=== PATIENT | female | born 1955 | race Caucasian/White ===

== ENCOUNTER 2016-12-26 08:38 | Emergency (ER) | payer OTHER ==
[2016-12-26 08:47] VITALS: BP 124/71; PULSE 78; TEMP 98.2; BMI 25.6
[2016-12-26] MEDS ORDERED: KETOROLAC TROMETHAMINE 60 MG/2 ML VIAL IM ONE (09:38)
[2016-12-26] MEDS ORDERED: KETOROLAC TROMETHAMINE 60 MG/2 ML VIAL ONE (09:41)
[2016-12-26] MEDS ORDERED: KETOROLAC TROMETHAMINE 30 MG/1 ML VIAL IM ONE (09:43)
--- NOTE | 2016-12-26 09:55 | PDOC ---
History of Present Illness - General Chief Complaint: Pain Stated Complaint: LT SHOULDER PAIN Time Seen by Provider: 12/26/16 08:58 - History of Present Illness Initial Comments: 12/26/16 09:51 CHIEF COMPLAINT: shoulder pain HISTORY OF PRESENT ILLNESS: 61 yo F with hx of HTN, HLD, s/p pacemaker implant presents to fast track with new onset pain to Left shoulder. 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 She denies any chest pain, shortness of breath, diaphoresis. She states the pain is worse whenever she tries to move her arm and improves without movement. No recent travel or sick contacts. PAST MEDICAL HISTORY: Denies past medical history FAMILY HISTORY: Denies SOCIAL HISTORY: Occupation: housekeeping associate. Denies tobacco, alcohol, illicit drug use. SURGICAL HISTORY: pacemaker ALLERGIES: No known drug allergies REVIEW OF SYSTEMS General/Constitutional: Denies fever or chills. Denies weakness, weight change. HEENT: Denies change in vision. Denies ear pain or discharge. Denies sore throat. Cardiovascular: Denies chest pain or shortness of breath. Respiratory: Denies cough, wheezing, or hemoptysis. Musculoskeletal: Left shoulder pain since last night. Skin and breasts: Denies rash or easy bruising. Neurologic: Denies headache, vertigo, loss of consciousness, or loss of sensation. PHYSICAL EXAM General Appearance: Well-appearing, appropriately dressed. No apparent distress. HEENT: EOMI, PERRLA, normal voice. No conjunctival pallor. No photophobia, scleral icterus. Respiratory/Chest: Lungs CTAB. Cardiovascular: RRR. S1, S2. Musculoskeletal/Extremities: Reproducible tenderness to left trapezius and glenohumeral joint. Positive empty can/Neer/Hawkin's tests. No tenderness to extremities, pedal edema, swelling, erythema or deformity. Integumentary: Appropriate color, dry, warm. No cyanosis, erythema, jaundice or rash Neurologic: manufacturing specialist II-XII intact. Fully oriented, alert. Appropriate mood/affect. Motor strength 5/5. No appreciable EOM palsy, facial droop or sensory deficit. Past History - Past Medical History Allergies/Adverse Reactions: Allergies Allergy/AdvReac Type Severity Reaction Status Date / Time Penicillins Allergy Intermediate Verified 12/26/16 08:47 Home Medications: Ambulatory Orders Carvedilol 3.125 mg PO BID 03/21/14 Lisinopril [Prinivil -] 5 mg PO DAILY 03/21/14 Simvastatin [Zocor -] 20 mg PO HS 03/21/14 Warfarin Sodium [Coumadin] 2.5 mg PO HS 03/21/14 Biotin 5 mg PO DAILY 10/28/14 Cholecalciferol (Vitamin D3) [Vitamin D3] 1,000 unit PO DAILY 10/28/14 Cyanocobalamin [Vitamin B12 -] 50 mcg PO DAILY 10/28/14 Tramadol HCl 50 mg PO TID 09/16/15 Ibuprofen 600 mg PO TID PRN #12 tablet 12/26/16 Spironolactone 50 mg PO DAILY 12/26/16 Cardiac Disorders: Yes (pacemaker, RHEUMATIC FEVER, MITRAL STENOSIS, AFIB/ FLUTTER) HTN: Yes Hypercholesterolemia: Yes - Surgical History Cardiac Surgery: Yes (BALLOON VALVOPLASTY, AV WAYNE ABLATION) Orthopedic Surgery: No - Psycho/Social/Smoking Cessation Hx Anxiety: No Suicidal Ideation: No Smoking Status: No Smoking History: Never smoked Have you smoked in the past 12 months: No Number of Cigarettes Smoked Daily: 0 Cigars Per Day: 0 Hx Alcohol Use: No Drug/Substance Use Hx: No Substance Use Type: None *Physical Exam - Vital Signs Last Vital Signs Temp Pulse Resp BP Pulse Ox 98.2 F 78 20 124/71 100 12/26/16 08:44 12/26/16 08:44 12/26/16 08:44 12/26/16 08:44 12/26/16 08:44 ED Treatment Course - Medications Given in the ED: ED Medications Discontinued Medications Generic Name Dose Route Start Last Admin Trade Name Freq PRN Reason Stop Dose Admin Ketorolac Tromethamine 60 mg 12/26/16 09:38 12/26/16 09:49 Toradol Injection - IM 12/26/16 09:39 Not Given ONCE ONE Ketorolac Tromethamine 30 mg 12/26/16 09:43 12/26/16 09:49 Toradol Injection - IM 12/26/16 09:44 30 mg ONCE ONE Administration Medical Decision Making - Medical Decision Making 12/26/16 10:35 61 yo F with hx of HTN, HLD, s/p pacemaker implant presents to fast track with new onset pain to Left shoulder. Clinical presentation consistent with rotator cuff injury. -30 mg Toradol -600 mg ibuprofen TID PRN pain; script sent to pharm. Advised patient to take with caution and only with severe pain. Advised patient that she must f/u with orthopedics within the next 1-2 days for further evaluation and management of rotator cuff injury pain. Patient verbalized understanding and agrees to plan. *DC/Admit/Observation/Transfer Diagnosis at time of Disposition: Rotator cuff impingement syndrome of left shoulder - Discharge Dispostion Disposition: HOME Condition at time of disposition: Stable Admit: No - Prescriptions Prescriptions: Ibuprofen 600 mg PO TID PRN #12 tablet PRN Reason: Pain - Referrals Referrals: Holli Gonzalez MD [Primary Care Provider] - Kale Connors MD [Staff Physician] - - Patient Instructions Printed Discharge Instructions: DI for Rotator Cuff Injury Additional Instructions: Please take medication as prescribed. Follow up with orthopedics as discussed. If you experience any chest pain, shortness of breath, abdominal pain, palpitations, sweating, or any new or worsening symptoms, please return to the ER.
== END 2016-12-26 10:37 | disposition home or self-care (01) ==
LOC: JERFT 08:38
PROC: 3E0233Z Introduction of Anti-inflammatory into Muscle, Percutaneous Approach (ICD-10-PCS; principal; 2016-12-26)
DX: M75.42 Impingement syndrome of left shoulder (principal); I10 Essential (primary) hypertension; E78.00 Pure hypercholesterolemia, unspecified; I48.91 Unspecified atrial fibrillation; Z79.01 Long term (current) use of anticoagulants; Z95.0 Presence of cardiac pacemaker
CPT/HCPCS: 99281-25

== ENCOUNTER 2016-12-28 06:12 | Emergency (ER) | payer OTHER ==
[2016-12-28] MEDS ORDERED: KETOROLAC TROMETHAMINE 30 MG/1 ML VIAL IM ONE (06:17)
[2016-12-28] MEDS ORDERED: predniSONE 20 MG TABLET (UD) PO ONE (06:17)
[2016-12-28 06:20] VITALS: BP 119/42; PULSE 64; TEMP 97.5; BMI 23.6
--- NOTE | 2016-12-28 06:23 | PDOC ---
History of Present Illness - General Chief Complaint: Pain, Acute Stated Complaint: LT SHOULDER PAIN History Source: Patient, Old Records Exam Limitations: No Limitations - History of Present Illness Initial Comments: 12/28/16 06:19 61 Y F VALVULOPLASTY, ON COUMADIN, SEEN IN ED 4 DAYS AGO FOR SHOULDER PAIN RX IBUPROFEN AND REFERRED TO ORTHO. PRESENTS TO ED C/O WORSENING PAIN. RADIATING TO BACK AND NECK. WORSE AT MOVEMENT. DID NOT FOLLOW UP WITH ORTHO. NO FEVER, NO PARESTHESIA. NO SOB, CP, N/V. NO HEAD ACHE. NO VISUAL OR SPEECH CHANGES. IN ED, UNCOMFORTABLE W/ PAIN Past History - Past Medical History Allergies/Adverse Reactions: Allergies Allergy/AdvReac Type Severity Reaction Status Date / Time Penicillins Allergy Intermediate Verified 12/26/16 08:47 Home Medications: Ambulatory Orders Carvedilol 3.125 mg PO BID 03/21/14 Simvastatin [Zocor -] 20 mg PO HS 03/21/14 Warfarin Sodium [Coumadin] 2.5 mg PO HS 03/21/14 Biotin 5 mg PO DAILY 10/28/14 Cholecalciferol (Vitamin D3) [Vitamin D3] 1,000 unit PO DAILY 10/28/14 Cyanocobalamin [Vitamin B12 -] 50 mcg PO DAILY 10/28/14 Tramadol HCl 50 mg PO TID 09/16/15 Ibuprofen 600 mg PO TID PRN #12 tablet 12/26/16 Spironolactone 50 mg PO DAILY 12/26/16 Cyclobenzaprine HCl [Flexeril 10 mg] 10 mg PO TID #20 tablet 12/28/16 Prednisone [Deltasone -] 40 mg PO DAILY #08 tablet 12/28/16 Cardiac Disorders: Yes (pacemaker, RHEUMATIC FEVER, MITRAL STENOSIS, AFIB/ FLUTTER) HTN: Yes Hypercholesterolemia: Yes - Surgical History Cardiac Surgery: Yes (BALLOON VALVOPLASTY, AV WAYNE ABLATION) Orthopedic Surgery: No - Psycho/Social/Smoking Cessation Hx Anxiety: No Suicidal Ideation: No Smoking Status: No Smoking History: Never smoked Have you smoked in the past 12 months: No Number of Cigarettes Smoked Daily: 0 Cigars Per Day: 0 Hx Alcohol Use: No Drug/Substance Use Hx: No Substance Use Type: None *Physical Exam - Physical Exam General Appearance: Yes: Nourished, Appropriately Dressed, Mild Distress HEENT: positive: EOMI, RADHAMES, Normal ENT Inspection, Other (NO PTOSIS) Neck: positive: Tender (MID TRAPEZIOUS TRIGGER POINT ). negative: Carotid bruit Respiratory/Chest: positive: Lungs Clear, Normal Breath Sounds. negative: Chest Tender Cardiovascular: positive: Regular Rhythm, Regular Rate Integumentary: positive: Normal Color Neurologic: positive: shuttle bus driver II-XII NML intact, Fully Oriented, Alert, Normal Mood/ Affect, Normal Response, Motor Strength 5/5 Progress Note - Progress Note Progress Note: SYMPTOMS C/W CERVICAL RADICULOPATHY WILL ADD MUSCL RELAXANT AND PREDNISONE *DC/Admit/Observation/Transfer Diagnosis at time of Disposition: Cervical radiculopathy - Discharge Dispostion Disposition: HOME Condition at time of disposition: Stable - Prescriptions Prescriptions: Prednisone [Deltasone -] 40 mg PO DAILY #08 tablet Cyclobenzaprine HCl [Flexeril 10 mg] 10 mg PO TID #20 tablet - Patient Instructions Additional Instructions: TAKE MEDICATIONS PRESCRIBED SEE ORTHOPEDIC SURGEON (DR EMERY) INSTRUCTED
[2016-12-28] MEDS ORDERED: CYCLOBENZAPRINE HCL 10 MG TABLET (FP) PO ONE (06:24)
[2016-12-28] MEDS ORDERED: CYCLOBENZAPRINE HCL 10 MG TABLET (FP) ONE (06:24)
== END 2016-12-28 06:55 | disposition home or self-care (01) ==
LOC: FER 06:12
PROC: 3E0233Z Introduction of Anti-inflammatory into Muscle, Percutaneous Approach (ICD-10-PCS; principal; 2016-12-28)
DX: M54.12 Radiculopathy, cervical region (principal); I10 Essential (primary) hypertension; E78.00 Pure hypercholesterolemia, unspecified; Z95.0 Presence of cardiac pacemaker; I05.0 Rheumatic mitral stenosis; Z79.01 Long term (current) use of anticoagulants
CPT/HCPCS: 99282-25

== ENCOUNTER 2017-01-29 12:38 | Inpatient (IN) | payer OTHER ==
--- NOTE | 2017-01-29 13:30 | PDOC ---
History of Present Illness - General History Source: Patient Exam Limitations: No Limitations - History of Present Illness Initial Comments: 01/29/17 14:22 The patient is a 61 year old female, with a significant past medical history of Mitral stenosis, Atrial flutter(pacemaker in place), HTN, HLD, Rheumatic fever who presents to the emergency department with neck pain for the past month. The patient reports the neck pain radiates down her L arm with tingling sensation into her fingers. Patient denies any alleviating or exacerbating factors. Patient reports associated cold sweats and a unexplained 20 pound weight loss within the past month. Currently in the ED, the patient is in severe pain and presents for further evaluation sent in by her PCP. She denies chest pain, headache or dizziness. She denies fever, nausea, vomit, diarrhea or constipation. She denies dysuria, frequency, urgency or hematuria. Allergies: Penicillins Past surgical history: ballon valvuloplasty, AV Wayne ablation Social history: None PCP: Dr. Linton <Debbie Calderon - Last Filed: 01/29/17 16:58> - General History Source: Patient Exam Limitations: No Limitations <Mercy Palafox - Last Filed: 01/30/17 09:09> - General Chief Complaint: Pain Stated Complaint: NECK/LT SHOULDER PAIN, NUMBNESS IN ARMS Time Seen by Provider: 01/29/17 12:56 Past History <Debbie Calderon - Last Filed: 01/29/17 16:58> - Past Medical History Cardiac Disorders: Yes (pacemaker, RHEUMATIC FEVER, MITRAL STENOSIS, AFIB/ FLUTTER) HTN: Yes Hypercholesterolemia: Yes - Surgical History Cardiac Surgery: Yes (BALLOON VALVOPLASTY, AV WAYNE ABLATION) Orthopedic Surgery: No - Psycho/Social/Smoking Cessation Hx Anxiety: No Suicidal Ideation: No Smoking Status: No Smoking History: Never smoked Have you smoked in the past 12 months: No Number of Cigarettes Smoked Daily: 0 Cigars Per Day: 0 Information on smoking cessation initiated: No Hx Alcohol Use: No Drug/Substance Use Hx: No Substance Use Type: None <Mercy Palafox - Last Filed: 01/30/17 09:09> - Past Medical History Allergies/Adverse Reactions: Allergies Allergy/AdvReac Type Severity Reaction Status Date / Time Penicillins Allergy Intermediate Verified 01/29/17 12:40 Home Medications: Ambulatory Orders Carvedilol 3.125 mg PO BID 03/21/14 Simvastatin [Zocor -] 20 mg PO HS 03/21/14 Warfarin Sodium [Coumadin] 2.5 mg PO HS 03/21/14 Biotin 5 mg PO DAILY 10/28/14 Cholecalciferol (Vitamin D3) [Vitamin D3] 1,000 unit PO DAILY 10/28/14 Cyanocobalamin [Vitamin B12 -] 50 mcg PO DAILY 10/28/14 Tramadol HCl 50 mg PO TID 09/16/15 Ibuprofen 600 mg PO TID PRN #12 tablet 12/26/16 Spironolactone 50 mg PO DAILY 12/26/16 Cyclobenzaprine HCl [Flexeril 10 mg] 10 mg PO TID #20 tablet 12/28/16 Prednisone [Deltasone -] 40 mg PO DAILY #08 tablet 12/28/16 Cyclobenzaprine HCl [Flexeril 10 mg] 5 mg PO BID PRN #20 tablet 01/29/17 Gabapentin 300 mg PO BID PRN #30 capsule 01/29/17 Metaxalone [Skelaxin] 800 mg PO BID 01/29/17 Review of Systems - Review of Systems Able to Perform ROS?: Yes Comments:: 01/29/17 14:22 GENERAL/CONSTITUTIONAL: No: fever, chills, weakness, loss of appetite. HEAD, EYES, EARS, NOSE AND THROAT: No: change in vision, ear pain, discharge, sore throat, throat swelling. CARDIOVASCULAR: No: chest pain, lightheadedness, palpitations, syncope RESPIRATORY: No: cough, shortness of breath, wheezing, hemoptysis, stridor. GASTROINTESTINAL: No: nausea, vomiting, abdominal cramping, diarrhea, rectal bleeding, constipation. GENITOURINARY: No: dysuria, hematuria, frequency, urgency, flank pain. MUSCULOSKELETAL: + neck pain. No: back pain, , joint pain, muscle swelling or pain SKIN: No: lesions, pallor, rash or easy bruising. NEUROLOGIC: No: headache, vertigo, paresthesias, weakness ENDOCRINE: No: unexplained weight gain or loss HEMATOLOGIC/LYMPHATIC: No: anemia, easy bleeding, swelling nodes <Debbie Calderon - Last Filed: 01/29/17 16:58> *Physical Exam - Vital Signs Last Vital Signs Temp Pulse Resp BP Pulse Ox 97.6 F 66 18 133/62 99 01/29/17 12:41 01/29/17 12:41 01/29/17 12:41 01/29/17 12:41 01/29/17 12:41 - Physical Exam Comments: 01/29/17 14:22 GENERAL: The patient is in no acute distress. HEAD: Normal with no signs of trauma. EYES: PERRLA, EOMI, sclera anicteric, conjunctiva clear. ENT: Ears normal, nares patent, oropharynx clear without exudates. Moist mucous membranes. NECK: Normal range of motion, supple without lymphadenopathy, JVD, or masses. + Cervical midline tenderness. +Cervical and thoracic tenderness to palpation. LUNGS: Breath sounds equal, clear to auscultation bilaterally. No wheezes, and no crackles. HEART:Regular rate and rhythm, normal S1 and S2 without murmur, rub or gallop. ABDOMEN: Soft, nontender, normoactive bowel sounds. No guarding, no rebound. EXTREMITIES: Normal range of motion, no edema. No clubbing or cyanosis. No erythema, or tenderness. NEUROLOGICAL: Cranial nerves II through XII grossly intact. Normal speech. No focal neurological deficits. MUSCULOSKELETAL: Back nontender to palpation, no CVA tenderness SKIN: Warm, Dry, normal turgor, no rashes or lesions noted. <Debbie Calderon - Last Filed: 01/29/17 16:58> - Vital Signs Last Vital Signs Temp Pulse Resp BP Pulse Ox 97.6 F 66 18 133/62 99 01/29/17 12:41 01/29/17 12:41 01/29/17 12:41 01/29/17 12:41 01/29/17 12:41 <Mercy Palafox - Last Filed: 01/30/17 09:09> Heart Score/ECG Review #1 ECG reviewed & interpreted by me at: 15:55 01/29/17 15:55 Aflutter rate of ?[address] Left axis deviation No ST elevations or depressions <Mercy Palafox - Last Filed: 01/30/17 09:09> ED Treatment Course - LABORATORY CBC & Chemistry Diagram: 01/29/17 13:15 01/29/17 13:15 - ADDITIONAL ORDERS Additional order review: Laboratory Results 01/29/17 13:15 Sodium 134 L Potassium 4.3 Chloride 98 Carbon Dioxide 22 Anion Gap 14 BUN 37 H Creatinine 1.0 Creat Clearance w eGFR 56.37 Random Glucose 105 Calcium 10.2 H Total Bilirubin 2.0 H AST 44 H ALT 75 Alkaline Phosphatase 54 Total Protein 7.7 Albumin 4.4 01/29/17 13:15 RBC 5.51 H MCV 86.9 MCHC 34.8 RDW 14.5 MPV 8.0 Neutrophils % 68.3 Lymphocytes % 23.0 Monocytes % 7.5 Eosinophils % 0.6 Basophils % 0.6 <Debbie Calderon - Last Filed: 01/29/17 16:58> - LABORATORY CBC & Chemistry Diagram: 01/30/17 06:30 01/30/17 06:30 - RADIOLOGY Radiology Studies Ordered: Category Date Time Status CERVICAL SPINE CT W/O CONTR [CT] Stat CT Scan 01/29/17 13:03 Ordered <Mercy Palafox - Last Filed: 01/30/17 09:09> Medical Decision Making - Medical Decision Making 01/29/17 13:29 A portion of this note was documented by scribe services under my direction. I have reviewed the details of the note, within reason, and agree with the documentation with the following case summary and management plan written by me. Nursing documentation reviewed and incorporated into medical decision making Pt sent to the ER from her PMD's office due to severe neck pain Pt reports 1 months of severe neck pain She was previously seen by Dr Connors She can not have an MRI due to presence of a pacemaker No fevers Pt does report chills She has also noted 20 pound weight loss in the past month No direct trauma to the neck Pt states that she has also been 01/29/17 14:07 Laboratory Tests 01/29/17 13:15 WBC 9.2 Hgb 16.6 H Hct 47.9 H Plt Count 223 Neutrophils % 68.3 Lymphocytes % 23.0 INR elevated Pt seen by Neuro in the ER per request of Dr Abarca Pt was admitted <Mercy Palafox - Last Filed: 01/30/17 09:09> *DC/Admit/Observation/Transfer - Attestations Scribe Attestion: 01/29/17 14:22 Documentation prepared by Debbie Calderon, acting as medical information specialist for Mercy Palafox MD/DO. <Debbie Calderon - Last Filed: 01/29/17 16:58> - Discharge Dispostion Admit: Yes <Mercy Palafox - Last Filed: 01/30/17 09:09> Diagnosis at time of Disposition: Cervical radiculopathy, Supratherapeutic INR - Discharge Dispostion Condition at time of disposition: Stable - Prescriptions
[2017-01-29 13:35] LABS: BASOPHIL 0.6 % (0-2.0); EOSINOPHIL 0.6 % (0-4.5); MCH 30.2 pg (25.7-33.7); MCHC 34.8 g/dl (32.0-36.0); MEAN CELL VOLUME 86.9 fl (80-96); NEUTROPHILS 68.3 % (42.8-82.8); PLATELET COUNT 223 K/MM3 (134-434); RDW 14.5 % (11.6-15.6); WHITE BLOOD COUNT 9.2 K/mm3 (4.0-10.0)
[2017-01-29 14:19] LABS: ALBUMIN 4.4 g/dl (3.4-5.0); CALCIUM 10.2 mg/dL (8.5-10.1); COCKROFT - GAULT 59.2195; TOT PROT 7.7 g/dl (6.4-8.2)
[2017-01-29 14:45] LABS: PROTHROMBIN TIME (PATIENT) 107.9 SEC (9.98-11.88)
[2017-01-29 14:47] LABS: INR 9.37 (0.82-1.09)
--- NOTE | 2017-01-29 15:06 | CONSULT ---
Consult - text type - Consultation Consultation Note: Neurology The patient is a 61 year old female, with a significant past medical history of Mitral stenosis (pacemaker in place), Atrial flutter, HTN, HLD, Rheumatic fever who presents to the emergency department with neck pain for the past month. The patient reports her neck pain radiates down her L arm with tingling sensation into her fingers. Patient denies any alleviating factors. She only tried Tylenol. She has CT C spine with facet hypertrophy. Ideally would be helpful to get EMG (cannot have MRI 2/2 PPM) however patient with INR of 9 and therefore may not be safe to do so at this time. Past History - Past Medical History Cardiac Disorders: Yes (pacemaker, RHEUMATIC FEVER, MITRAL STENOSIS, AFIB/ FLUTTER) HTN: Yes Hypercholesterolemia: Yes - Surgical History Cardiac Surgery: Yes (BALLOON VALVOPLASTY, AV WAYNE ABLATION) Orthopedic Surgery: No - Psycho/Social/Smoking Cessation Hx Anxiety: No Suicidal Ideation: No Smoking Status: No Smoking History: Never smoked Have you smoked in the past 12 months: No Number of Cigarettes Smoked Daily: 0 Cigars Per Day: 0 Information on smoking cessation initiated: No Hx Alcohol Use: No Drug/Substance Use Hx: No Substance Use Type: None - Past Medical History Allergies/Adverse Reactions: Allergies Allergy/AdvReac Type Severity Reaction Status Date / Time Penicillins Allergy Intermediate Verified 01/29/17 12:40 Home Medications: Ambulatory Orders Carvedilol 3.125 mg PO BID 03/21/14 Simvastatin [Zocor -] 20 mg PO HS 03/21/14 Warfarin Sodium [Coumadin] 2.5 mg PO HS 03/21/14 Biotin 5 mg PO DAILY 10/28/14 Cholecalciferol (Vitamin D3) [Vitamin D3] 1,000 unit PO DAILY 10/28/14 Cyanocobalamin [Vitamin B12 -] 50 mcg PO DAILY 10/28/14 Tramadol HCl 50 mg PO TID 09/16/15 Ibuprofen 600 mg PO TID PRN #12 tablet 12/26/16 Spironolactone 50 mg PO DAILY 12/26/16 Cyclobenzaprine HCl [Flexeril 10 mg] 10 mg PO TID #20 tablet 12/28/16 Prednisone [Deltasone -] 40 mg PO DAILY #08 tablet 12/28/16 Metaxalone [Skelaxin] 800 mg PO BID 01/29/17 Review of Systems GENERAL/CONSTITUTIONAL: No: fever, chills, weakness, loss of appetite. HEAD, EYES, EARS, NOSE AND THROAT: No: change in vision, ear pain, discharge, sore throat, throat swelling. CARDIOVASCULAR: No: chest pain, lightheadedness, palpitations, syncope RESPIRATORY: No: cough, shortness of breath, wheezing, hemoptysis, stridor. GASTROINTESTINAL: No: nausea, vomiting, abdominal cramping, diarrhea, rectal bleeding, constipation. GENITOURINARY: No: dysuria, hematuria, frequency, urgency, flank pain. MUSCULOSKELETAL: + neck pain. No: back pain, , joint pain, muscle swelling or pain SKIN: No: lesions, pallor, rash or easy bruising. NEUROLOGIC: No: headache, vertigo, paresthesias, weakness ENDOCRINE: No: unexplained weight gain or loss HEMATOLOGIC/LYMPHATIC: No: anemia, easy bleeding, swelling nodes *Physical Exam Last Vital Signs Temp Pulse Resp BP Pulse Ox 97.6 F 66 18 133/62 99 01/29/17 12:41 01/29/17 12:41 01/29/17 12:41 01/29/17 12:41 01/29/17 12:41 GENERAL: The patient is in no acute distress. HEAD: Normal with no signs of trauma. EYES: PERRLA, EOMI, sclera anicteric, conjunctiva clear. ENT: Ears normal, nares patent, oropharynx clear without exudates. Moist mucous membranes. NECK: Normal range of motion, supple without lymphadenopathy, JVD, or masses. + Cervical midline tenderness. +Cervical and thoracic tenderness to palpation. LUNGS: Breath sounds equal, clear to auscultation bilaterally. No wheezes, and no crackles. HEART:Regular rate and rhythm, normal S1 and S2 without murmur, rub or gallop. ABDOMEN: Soft, nontender, normoactive bowel sounds. No guarding, no rebound. EXTREMITIES: Normal range of motion, no edema. No clubbing or cyanosis. No erythema, or tenderness. NEUROLOGICAL: Cranial nerves II through XII grossly intact. Normal speech. No focal neurological deficits. Individualized Education Plan Aide strenght intact, decreased range of motion of cervical flex/ex MUSCULOSKELETAL: Back nontender to palpation, no CVA tenderness SKIN: Warm, Dry, normal turgor, no rashes or lesions noted. Laboratory Results 01/29/17 13:15 Sodium 134 L Potassium 4.3 Chloride 98 Carbon Dioxide 22 Anion Gap 14 BUN 37 H Creatinine 1.0 Creat Clearance w eGFR 56.37 Random Glucose 105 Calcium 10.2 H Total Bilirubin 2.0 H AST 44 H ALT 75 Alkaline Phosphatase 54 Total Protein 7.7 Albumin 4.4 01/29/17 13:15 RBC 5.51 H MCV 86.9 MCHC 34.8 RDW 14.5 MPV 8.0 Neutrophils % 68.3 Lymphocytes % 23.0 Monocytes % 7.5 Eosinophils % 0.6 Basophils % 0.6 Medical Decision Making 61 year old female, with a significant past medical history of Mitral stenosis ( pacemaker in place), Atrial flutter, HTN, HLD, Rheumatic fever who presents to the emergency department with neck pain for the past month. The patient reports her neck pain radiates down her L arm with tingling sensation into her fingers. Patient denies any alleviating factors. She only tried Tylenol. She has CT C spine with facet hypertrophy. Ideally would be helpful to get EMG (cannot have MRI 2/2 PPM) however patient with INR of 9 and therefore may not be safe to do so at this time. Will start Erika 300mg twice daily and Cyclobenzaprine. Medical mgmt for INR as patient on Coumadin with INR of 9. Will have to defer EMG to outpatient.
[2017-01-29] MEDS ORDERED: ONDANSETRON 4 MG/2 ML VIAL IVPB PRN (15:29)
[2017-01-29] MEDS ORDERED: PHYTONADIONE 10 MG/1 ML AMP SQ ONE (15:32)
--- NOTE | 2017-01-29 15:38 | HP ---
Admitting History and Physical - Primary Care Physician PCP: Holli Gonzalez - Admission Chief Complaint: I'm having arm pain History of Present Illness: Ms Brown is a 61 year old female who was sent in for pain in her arm for 1.5 months. She says she did not have any trauma to the area, it happened spontaneously. She says the pain begins in her neck and it radiates down her left arm. She has numbness in four of her fingers on the ventral side. She says certain neck movements make it worse. She says nothing relieves it. When this pain started, she also had a loss of appetite. She says she lost 20lbs unintentionally secondary to this. She also has been having night sweats. She denies fevers, chills, lightheadedness, dizziness, chest pain, shortness of breath, nausea, vomiting, diarrhea, constipation, pain or difficulty urinating, or leg swelling. History Source: Patient Limitations to Obtaining History: No Limitations - Past Medical History Cardiovascular: Yes: AFIB, HTN, Hyperlipdemia - Past Surgical History Past Surgical History: Yes: Permanent Pacemaker - Smoking History Smoking history: Never smoked Have you smoked in the past 12 months: No Aproximately how many cigarettes per day: 0 - Alcohol/Substance Use Hx Alcohol Use: No History of Substance Use: reports: None - Social History Usual Living Arrangement: Yes: Alone ADL: Independent History of Recent Travel: No Home Medications - Allergies Allergies/Adverse Reactions: Allergies Allergy/AdvReac Type Severity Reaction Status Date / Time Penicillins Allergy Intermediate Verified 01/29/17 12:40 - Home Medications Home Medications: Ambulatory Orders Carvedilol 3.125 mg PO BID 03/21/14 Simvastatin [Zocor -] 20 mg PO HS 03/21/14 Warfarin Sodium [Coumadin] 2.5 mg PO HS 03/21/14 Biotin 5 mg PO DAILY 10/28/14 Cholecalciferol (Vitamin D3) [Vitamin D3] 1,000 unit PO DAILY 10/28/14 Cyanocobalamin [Vitamin B12 -] 50 mcg PO DAILY 10/28/14 Tramadol HCl 50 mg PO TID 09/16/15 Ibuprofen 600 mg PO TID PRN #12 tablet 12/26/16 Spironolactone 50 mg PO DAILY 12/26/16 Cyclobenzaprine HCl [Flexeril 10 mg] 10 mg PO TID #20 tablet 12/28/16 Prednisone [Deltasone -] 40 mg PO DAILY #08 tablet 12/28/16 Cyclobenzaprine HCl [Flexeril 10 mg] 5 mg PO BID PRN #20 tablet 01/29/17 Gabapentin 300 mg PO BID PRN #30 capsule 01/29/17 Metaxalone [Skelaxin] 800 mg PO BID 01/29/17 Family Disease History - Family Disease History Family Disease History: [place]: Grandparent, Father, Mother Review of Systems Findings/Remarks: Full review of systems obtained, as per HPI and otherwise negative. Physical Examination Vital Signs: Vital Signs Temperature 97.6 F 01/29/17 12:41 Pulse Rate 66 01/29/17 12:41 Respiratory Rate 18 01/29/17 12:41 Blood Pressure 133/62 01/29/17 12:41 O2 Sat by Pulse Oximetry (%) 99 01/29/17 12:41 Constitutional: Yes: Well Nourished, No Distress, Calm Eyes: Yes: Conjunctiva Clear, EOM Intact, PERRL HENT: Yes: Atraumatic, Normocephalic Cardiovascular: Yes: Regular Rate and Rhythm. No: Gallop, Murmur, Rub Respiratory: Yes: Regular, CTA Bilaterally. No: Rales, Rhonchi, Wheezes Gastrointestinal: Yes: Normal Bowel Sounds, Soft. No: Distention, Tenderness Extremities: Yes: WNL Edema: No Labs: CBC, BMP 01/29/17 13:15 01/29/17 13:15 Imaging - Results Cat Scan: Report Reviewed, Image Reviewed Problem List - Problems (1) Supratherapeutic INR Assessment/Plan: -patient found to have INR of 9 -suspect this is secondary to decreased food intake -admit to the hospital, unsafe for discharge home -give vitamin k -will check head CT to rule out bleed -hold coumadin Code(s): R79.1 - ABNORMAL COAGULATION PROFILE (2) Cervical radiculopathy Assessment/Plan: -appreciate neurology assistance -PT consult -gabapentin and flexeril -outpatient EMG Code(s): M54.12 - RADICULOPATHY, CERVICAL REGION (3) Hypercalcemia Assessment/Plan: -patient with calcium on the high end of normal -considering multiple non-specific complaints, concerning for possible malignancy -hydrate with IVF -recheck in am -will obtain CT C/A/P since has weight loss, night sweats, hypercalcemia, and significant family history Code(s): E83.52 - HYPERCALCEMIA (4) Hyperbilirubinemia Assessment/Plan: -patient taking tylenol for pain -stat tylenol level ordered, awaiting results -CT abdomen ordered -recheck in am -hold statin Code(s): E80.6 - OTHER DISORDERS OF BILIRUBIN METABOLISM (5) Atrial fibrillation Assessment/Plan: -with permanent pacemaker -continue outpatient therapy -hold coumadin as above Code(s): I48.91 - UNSPECIFIED ATRIAL FIBRILLATION Qualifiers: Atrial fibrillation type: chronic Qualified Code(s): I48.2 - Chronic atrial fibrillation (6) HTN (hypertension) Assessment/Plan: -continue coreg and aldactone Code(s): I10 - ESSENTIAL (PRIMARY) HYPERTENSION (7) HLD (hyperlipidemia) Assessment/Plan: -holding statin Code(s): E78.5 - HYPERLIPIDEMIA, UNSPECIFIED (8) Night sweats Assessment/Plan: -non-specific -however with hypercalcemia, hyperbilirubinemia, and anorexia with weight loss will obtain both CT scans and HIV test Code(s): R61 - GENERALIZED HYPERHIDROSIS (9) Weight loss, unintentional Assessment/Plan: -as above -note that protein and albumin are normal so this may be subjective Code(s): R63.4 - ABNORMAL WEIGHT LOSS
--- NOTE | 2017-01-29 16:46 | PDOC ---
ED Treatment Course - LABORATORY CBC & Chemistry Diagram: 01/29/17 13:15 01/29/17 13:15 - ADDITIONAL ORDERS Additional order review: Laboratory Results 01/29/17 01/29/17 01/29/17 13:15 13:15 13:03 INR 9.37 H* D Sodium 134 L Potassium 4.3 Chloride 98 Carbon Dioxide 22 Anion Gap 14 BUN 37 H Creatinine 1.0 Creat Clearance w eGFR 56.37 Random Glucose 105 Calcium 10.2 H Total Bilirubin 2.0 H AST 44 H ALT 75 Alkaline Phosphatase 54 Total Protein 7.7 Albumin 4.4 Blood Type B POSITIVE Antibody Screen Negative 01/29/17 13:15 RBC 5.51 H MCV 86.9 MCHC 34.8 RDW 14.5 MPV 8.0 Neutrophils % 68.3 Lymphocytes % 23.0 Monocytes % 7.5 Eosinophils % 0.6 Basophils % 0.6 - RADIOLOGY Radiology Studies Ordered: Category Date Time Status CERVICAL SPINE CT W/O CONTR [CT] Stat CT Scan 01/29/17 13:[address] WITHOUT CONTRAST [CT] Stat CT Scan 01/29/17 15:07 Ordered *DC/Admit/Observation/Transfer Diagnosis at time of Disposition: Cervical radiculopathy, Supratherapeutic INR - Discharge Dispostion Condition at time of disposition: Stable Admit: Yes - Prescriptions
[2017-01-29] MEDS ORDERED: morphine CARPU-JECT 4 MG/1 ML DISP.SYRIN IVPUSH ONE (16:51)
[2017-01-29] MEDS ORDERED: PANTOPRAZOLE 40 MG TABLET (FP) ONE (17:09)
[2017-01-29] MEDS ORDERED: morphine CARPU-JECT 4 MG/1 ML DISP.SYRIN ONE (17:09)
[2017-01-29] MEDS: PANTOPRAZOLE 40 MG TABLET (FP) PO SCH (17:21)
[2017-01-29] MEDS: SODIUM CHLORIDE 1,000 ML IV SCH (19:16)
[2017-01-29 20:23] VITALS: BMI 23.2
[2017-01-29] MEDS ORDERED: diphenhydrAMINE HCL 25 MG CAPSULE (FP) PO PRN (21:09)
[2017-01-29] MEDS ORDERED: oxyCODONE HCL 5 MG TABLET PO PRN (21:15)
[2017-01-29] MEDS ORDERED: ATORVASTATIN CA 10 MG TABLET (FP) PO SCH (22:00)
[2017-01-29] MEDS ORDERED: PATIENT'S OWN MEDICATION (NON-FORMULARY) (Simvastatin 20 MG) PO SCH (22:00)
--- NOTE | 2017-01-29 22:52 | EKG ---
Test Reason : Blood Pressure : / mmHG Vent. Rate : 117 BPM Atrial Rate : 340 BPM P-R Int : 000 ms QRS Dur : 016 ms QT Int : 458 ms P-R-T Axes : 107 000 -08 degrees QTc Int : 638 ms ATRIAL FLUTTER WITH VARIABLE A-V BLOCK WITH FREQUENT ventricular-paced complexes AND WITH PREMATURE VENTRICULAR OR ABERRANTLY CONDUCTED COMPLEXES INDETERMINATE AXIS PROLONGED QT ABNORMAL ECG WHEN COMPARED WITH ECG OF 30-DEC-2006 07:24, ELECTRONIC VENTRICULAR PACEMAKER Confirmed by BRENDEN ALEJANDRE MD ([id number]) on 01/29/2017 10:51:55 PM Referred By: Confirmed By:BRENDEN ALEJANDRE MD
[2017-01-29] MEDS: CYCLOBENZAPRINE HCL 10 MG TABLET (FP) PO SCH (23:40)
[2017-01-29] MEDS: GABAPENTIN 300 MG CAPSULE (FP) PO SCH (23:40)
[2017-01-29] MEDS: ACETYLCYSTEINE 20% 200MG/ML 4 ML VIAL *FOR ORAL / INH USE ONLY PO SCH (23:40)
[2017-01-29] MEDS: CARVEDILOL 3.125 MG TABLET (FP) PO SCH (23:40)
[2017-01-30 07:47] LABS: BASOPHIL 0.6 % (0-2.0); EOSINOPHIL 1.4 % (0-4.5); MCH 30.2 pg (25.7-33.7); MCHC 34.4 g/dl (32.0-36.0); MEAN CELL VOLUME 87.8 fl (80-96); MEAN PLT VOLUME 8.2 fl (7.5-11.1); PLATELET COUNT 186 K/MM3 (134-434); RDW 14.7 % (11.6-15.6); WHITE BLOOD COUNT 6.7 K/mm3 (4.0-10.0)
[2017-01-30 08:25] LABS: ALBUMIN 3.6 g/dl (3.4-5.0); ANION GAP 7 (8-16); CALCIUM 8.6 mg/dL (8.5-10.1); CO2 27 mmol/L (21-32); CREATININE 0.9 mg/dL (0.55-1.02); GLUCOSE,RANDOM 90 mg/dL (74-106); MAGNESIUM 1.8 mg/dL (1.8-2.4); SGOT/AST 27 U/L (15-37); SGPT/ALT 49 U/L (12-78)
[2017-01-30 08:27] LABS: ALK PHOS 43 U/L (45-117); BILIRUBIN,TOTAL 1.7 mg/dL (0.2-1.0); TOT PROT 6.5 g/dl (6.4-8.2)
[2017-01-30 08:37] LABS: INR 5.44 (0.82-1.09)
[2017-01-30] MEDS ORDERED: PATIENT'S OWN MEDICATION (NON-FORMULARY) (Spironolactone [Spironolactone] 50 MG) PO SCH (10:00)
[2017-01-30] MEDS: SPIRONOLACTONE 25 MG TABLET (FP) PO SCH (10:40)
[2017-01-30] MEDS: CYCLOBENZAPRINE HCL 10 MG TABLET (FP) PO SCH ×2 (10:40→21:34)
[2017-01-30] MEDS: CARVEDILOL 3.125 MG TABLET (FP) PO SCH ×2 (10:40→21:34)
[2017-01-30] MEDS: CYANOCOBALAMIN (VITAMIN B-12) 100 MCG TABLET PO SCH (10:41)
[2017-01-30] MEDS: GABAPENTIN 300 MG CAPSULE (FP) PO SCH ×2 (10:41→21:35)
[2017-01-30] MEDS: PANTOPRAZOLE 40 MG TABLET (FP) PO SCH (10:41)
[2017-01-30] MEDS: CHOLECALCIFEROL (VITAMIN D3) 1,000 UNIT TABLET (FP) PO SCH (10:41)
[2017-01-30 12:00] LABS: HIV 1 & 2 AB NEGATIVE; HIV 1 AGp24 NEGATIVE
--- NOTE | 2017-01-30 12:47 | PN ---
Progress Note (short form) - Note Progress Note: Neurology The patient is a 61 year old female, with a significant past medical history of Mitral stenosis (pacemaker in place), Atrial flutter, HTN, HLD, Rheumatic fever who presents to the emergency department with neck pain for the past month. The patient reports her neck pain radiates down her L arm with tingling sensation into her fingers. Patient denies any alleviating factors. She only tried Tylenol. She has CT C spine with facet hypertrophy. Ideally would be helpful to get EMG (cannot have MRI 2/2 PPM) however patient with INR elevated and therefore may not be safe to do so at this time. Plan is for outpatient EMG. Cervical discomfort improved with gabapentin and flexiril combination. - Past Medical History Allergies/Adverse Reactions: Allergies Allergy/AdvReac Type Severity Reaction Status Date / Time Penicillins Allergy Intermediate Verified 01/29/17 12:40 Active Medications Acetylcysteine (Mucomyst 20 Oral / Inh Use Only*) 1,200 mg PO BID COUNTS INCLUDE 234 BEDS AT THE [facility] Stop: 01/31/17 10:01 Last Admin: 01/29/17 23:40 Dose: 1,200 mg Carvedilol (Coreg -) 3.125 mg PO BID COUNTS INCLUDE 234 BEDS AT THE [facility] Last Admin: 01/30/17 10:40 Dose: 3.125 mg Cholecalciferol (Vitamin D3 -) 1,000 unit PO DAILY COUNTS INCLUDE 234 BEDS AT THE [facility] Last Admin: 01/30/17 10:41 Dose: 1,000 unit Cyanocobalamin (Vitamin B12 -) 50 mcg PO DAILY COUNTS INCLUDE 234 BEDS AT THE [facility] Last Admin: 01/30/17 10:41 Dose: 50 mcg Cyclobenzaprine HCl (Flexeril -) 5 mg PO BID COUNTS INCLUDE 234 BEDS AT THE [facility] Last Admin: 01/30/17 10:40 Dose: 5 mg Diphenhydramine HCl (Benadryl -) 25 mg PO Q4H PRN PRN Reason: ITCHING /RASH Last Admin: 01/29/17 23:40 Dose: 25 mg Gabapentin (Neurontin -) 300 mg PO BID COUNTS INCLUDE 234 BEDS AT THE [facility] Last Admin: 01/30/17 10:41 Dose: 300 mg Sodium Chloride (Normal Saline -) 1,000 mls @ 50 mls/hr IV ASDIR COUNTS INCLUDE 234 BEDS AT THE [facility] Stop: 01/30/17 15:31 Last Admin: 01/29/17 19:16 Dose: 50 mls/hr Ondansetron HCl (Zofran Injection) 4 mg IVPB Q6H PRN PRN Reason: NAUSEA Oxycodone HCl (Roxicodone -) 5 mg PO Q6H PRN Pantoprazole Sodium (Protonix -) 40 mg PO DAILY COUNTS INCLUDE 234 BEDS AT THE [facility] Last Admin: 01/30/17 10:41 Dose: 40 mg Spironolactone (Aldactone -) 50 mg PO DAILY COUNTS INCLUDE 234 BEDS AT THE [facility] Last Admin: 01/30/17 10:40 Dose: 50 mg *Physical Exam Vital Signs Period Temp Pulse Resp BP Sys/Tejeda Pulse Ox Last 24 Hr 97.4 F-98.6 F 69-100 18-20 97-143/58-88 98-100 GENERAL: The patient is in no acute distress. HEAD: Normal with no signs of trauma. EYES: PERRLA, EOMI, sclera anicteric, conjunctiva clear. ENT: Ears normal, nares patent, oropharynx clear without exudates. Moist mucous membranes. NECK: Normal range of motion, supple without lymphadenopathy, JVD, or masses. + Cervical midline tenderness. +Cervical and thoracic tenderness to palpation. LUNGS: Breath sounds equal, clear to auscultation bilaterally. No wheezes, and no crackles. HEART:Regular rate and rhythm, normal S1 and S2 without murmur, rub or gallop. ABDOMEN: Soft, nontender, normoactive bowel sounds. No guarding, no rebound. EXTREMITIES: Normal range of motion, no edema. No clubbing or cyanosis. No erythema, or tenderness. NEUROLOGICAL: Cranial nerves II through XII grossly intact. Normal speech. No focal neurological deficits. Executive Vice President strenght intact, decreased range of motion of cervical flex/ex MUSCULOSKELETAL: Back nontender to palpation, no CVA tenderness SKIN: Warm, Dry, normal turgor, no rashes or lesions noted. Laboratory Results 01/29/17 13:15 Sodium 134 L Potassium 4.3 Chloride 98 Carbon Dioxide 22 Anion Gap 14 BUN 37 H Creatinine 1.0 Creat Clearance w eGFR 56.37 Random Glucose 105 Calcium 10.2 H Total Bilirubin 2.0 H AST 44 H ALT 75 Alkaline Phosphatase 54 Total Protein 7.7 Albumin 4.4 01/29/17 13:15 RBC 5.51 H MCV 86.9 MCHC 34.8 RDW 14.5 MPV 8.0 Neutrophils % 68.3 Lymphocytes % 23.0 Monocytes % 7.5 Eosinophils % 0.6 Basophils % 0.6 Medical Decision Making 61 year old female, with a significant past medical history of Mitral stenosis ( pacemaker in place), Atrial flutter, HTN, HLD, Rheumatic fever who presents to the emergency department with neck pain for the past month. The patient reports her neck pain radiates down her L arm with tingling sensation into her fingers. Patient denies any alleviating factors. She only tried Tylenol. She has CT C spine with facet hypertrophy. Ideally would be helpful to get EMG (cannot have MRI 2/2 PPM) however patient with INR elevated and therefore may not be safe to do so at this time. Doing well onb Erika 300mg twice daily and Cyclobenzaprine 5mg twice daily. Medical mgmt for INR as patient on Coumadin. Will have to defer EMG to outpatient. Neurologically improved.
[2017-01-30] MEDS: SODIUM CHLORIDE 1,000 ML IV SCH ×2 (13:12→15:43)
--- NOTE | 2017-01-30 13:13 | PN ---
Progress Note, Physician Chief Complaint: Patient says pain is better controlled. No cp, sob, n/v. - Current Medication List Current Medications: Active Medications Acetylcysteine (Mucomyst 20 Oral / Inh Use Only*) 1,200 mg PO BID [facility] Stop: 01/31/17 10:01 Last Admin: 01/29/17 23:40 Dose: 1,200 mg Carvedilol (Coreg -) 3.125 mg PO BID [facility] Last Admin: 01/30/17 10:40 Dose: 3.125 mg Cholecalciferol (Vitamin D3 -) 1,000 unit PO DAILY [facility] Last Admin: 01/30/17 10:41 Dose: 1,000 unit Cyanocobalamin (Vitamin B12 -) 50 mcg PO DAILY [facility] Last Admin: 01/30/17 10:41 Dose: 50 mcg Cyclobenzaprine HCl (Flexeril -) 5 mg PO BID [facility] Last Admin: 01/30/17 10:40 Dose: 5 mg Diphenhydramine HCl (Benadryl -) 25 mg PO Q4H PRN PRN Reason: ITCHING /RASH Last Admin: 01/29/17 23:40 Dose: 25 mg Gabapentin (Neurontin -) 300 mg PO BID [facility] Last Admin: 01/30/17 10:41 Dose: 300 mg Sodium Chloride (Normal Saline -) 1,000 mls @ 50 mls/hr IV ASDIR [facility] Stop: 01/30/17 15:31 Last Admin: 01/30/17 13:12 Dose: 50 mls/hr Ondansetron HCl (Zofran Injection) 4 mg IVPB Q6H PRN PRN Reason: NAUSEA Oxycodone HCl (Roxicodone -) 5 mg PO Q6H PRN Last Admin: 01/30/17 13:11 Dose: 5 mg Pantoprazole Sodium (Protonix -) 40 mg PO DAILY [facility] Last Admin: 01/30/17 10:41 Dose: 40 mg Spironolactone (Aldactone -) 50 mg PO DAILY [facility] Last Admin: 01/30/17 10:40 Dose: 50 mg - Objective Vital Signs: Vital Signs Temperature 98.4 F 01/30/17 10:00 Pulse Rate 82 01/30/17 10:00 Respiratory Rate 18 01/30/17 10:00 Blood Pressure 109/73 01/30/17 10:00 O2 Sat by Pulse Oximetry (%) 98 01/30/17 09:00 Constitutional: Yes: Well Nourished, No Distress, Calm Cardiovascular: Yes: Regular Rate and Rhythm. No: Gallop, Murmur, Rub Respiratory: Yes: Regular, CTA Bilaterally. No: Rales, Rhonchi, Wheezes Gastrointestinal: Yes: Normal Bowel Sounds, Soft. No: Distention, Tenderness Extremities: Yes: WNL Edema: No Labs: CBC, BMP 01/30/17 06:30 01/30/17 06:30 INR, PTT INR 5.44 (0.82-1.09) H* D 01/30/17 06:30 Problem List - Problems (1) Supratherapeutic INR Code(s): R79.1 - ABNORMAL COAGULATION PROFILE (2) Cervical radiculopathy Code(s): M54.12 - RADICULOPATHY, CERVICAL REGION (3) Hypercalcemia Code(s): E83.52 - HYPERCALCEMIA (4) Hyperbilirubinemia Code(s): E80.6 - OTHER DISORDERS OF BILIRUBIN METABOLISM (5) Atrial fibrillation Code(s): I48.91 - UNSPECIFIED ATRIAL FIBRILLATION Qualifiers: Atrial fibrillation type: chronic Qualified Code(s): I48.2 - Chronic atrial fibrillation (6) HTN (hypertension) Code(s): I10 - ESSENTIAL (PRIMARY) HYPERTENSION (7) HLD (hyperlipidemia) Code(s): E78.5 - HYPERLIPIDEMIA, UNSPECIFIED (8) Night sweats Code(s): R61 - GENERALIZED HYPERHIDROSIS (9) Weight loss, unintentional Code(s): R63.4 - ABNORMAL WEIGHT LOSS Assessment/Plan (1) Supratherapeutic INR Assessment/Plan: -improved today but still elevated -continue holding coumadin -recheck in am Code(s): R79.1 - ABNORMAL COAGULATION PROFILE (2) Cervical radiculopathy Assessment/Plan: -improved -case d/w neurology -continue current regimen Code(s): M54.12 - RADICULOPATHY, CERVICAL REGION (3) Hypercalcemia Assessment/Plan: -resolved with hydration Code(s): E83.52 - HYPERCALCEMIA (4) Hyperbilirubinemia Assessment/Plan: -non-toxic tylenol level -improved with hydration Code(s): E80.6 - OTHER DISORDERS OF BILIRUBIN METABOLISM (5) Atrial fibrillation Assessment/Plan: -with permanent pacemaker -continue outpatient therapy -hold coumadin as above Code(s): I48.91 - UNSPECIFIED ATRIAL FIBRILLATION Qualifiers: Atrial fibrillation type: chronic Qualified Code(s): I48.2 - Chronic atrial fibrillation (6) HTN (hypertension) Assessment/Plan: -continue coreg and aldactone Code(s): I10 - ESSENTIAL (PRIMARY) HYPERTENSION (7) HLD (hyperlipidemia) Assessment/Plan: -holding statin Code(s): E78.5 - HYPERLIPIDEMIA, UNSPECIFIED (8) Night sweats Assessment/Plan: -non-specific -HIV negative -await CT scan results Code(s): R61 - GENERALIZED HYPERHIDROSIS (9) Weight loss, unintentional Assessment/Plan: -as above -note that protein and albumin are normal so this may be subjective Code(s): R63.4 - ABNORMAL WEIGHT LOSS
[2017-01-30] MEDS: ACETYLCYSTEINE 20% 200MG/ML 4 ML VIAL *FOR ORAL / INH USE ONLY PO SCH ×2 (13:20→21:34)
[2017-01-31 07:21] LABS: BASOPHIL 0.4 % (0-2.0); EOSINOPHIL 1.1 % (0-4.5); MCH 30.5 pg (25.7-33.7); MCHC 34.6 g/dl (32.0-36.0); MEAN CELL VOLUME 88.2 fl (80-96); MEAN PLT VOLUME 8.3 fl (7.5-11.1); NEUTROPHILS 62.8 % (42.8-82.8); PLATELET COUNT 177 K/MM3 (134-434); RDW 14.8 % (11.6-15.6); WHITE BLOOD COUNT 6.7 K/mm3 (4.0-10.0)
[2017-01-31 07:45] LABS: CALCIUM 8.9 mg/dL (8.5-10.1); COCKROFT - GAULT 67.15; CREATININE 0.8 mg/dL (0.55-1.02)
[2017-01-31 08:08] LABS: INR 1.87 (0.82-1.09); PROTHROMBIN TIME (PATIENT) 20.8 SEC (9.98-11.88)
[2017-01-31 09:59] VITALS: BP 127/79; PULSE 96; TEMP 97.3
[2017-01-31] MEDS: ACETYLCYSTEINE 20% 200MG/ML 4 ML VIAL *FOR ORAL / INH USE ONLY PO SCH (10:55)
[2017-01-31] MEDS: CHOLECALCIFEROL (VITAMIN D3) 1,000 UNIT TABLET (FP) PO SCH (10:55)
[2017-01-31] MEDS: CARVEDILOL 3.125 MG TABLET (FP) PO SCH (10:55)
[2017-01-31] MEDS: SPIRONOLACTONE 25 MG TABLET (FP) PO SCH (10:56)
[2017-01-31] MEDS: CYCLOBENZAPRINE HCL 10 MG TABLET (FP) PO SCH (10:56)
[2017-01-31] MEDS: CYANOCOBALAMIN (VITAMIN B-12) 100 MCG TABLET PO SCH (10:57)
[2017-01-31] MEDS: GABAPENTIN 300 MG CAPSULE (FP) PO SCH (10:57)
[2017-01-31] MEDS: PANTOPRAZOLE 40 MG TABLET (FP) PO SCH (10:57)
--- NOTE | 2017-01-31 11:04 | DS ---
Physical Examination Vital Signs: Vital Signs Temperature 97.3 F L 01/31/17 09:58 Pulse Rate 96 H 01/31/17 09:58 Respiratory Rate 22 01/31/17 09:58 Blood Pressure 127/79 01/31/17 09:58 O2 Sat by Pulse Oximetry (%) 98 01/30/17 21:00 Constitutional: Yes: Well Nourished, No Distress, Calm Cardiovascular: Yes: Regular Rate and Rhythm. No: Gallop, Murmur, Rub Respiratory: Yes: Regular, CTA Bilaterally. No: Rales, Rhonchi, Wheezes Gastrointestinal: Yes: Normal Bowel Sounds, Soft. No: Distention, Tenderness Extremities: Yes: WNL Edema: No Labs: CBC, BMP 01/31/17 06:10 01/31/17 06:10 Discharge Summary Reason For Visit: INTRACTABLE PAIN,CERVICAL RADICULOPATHY Current Active Problems Atrial fibrillation (Acute) Cervical radiculopathy (Acute) HLD (hyperlipidemia) (Acute) HTN (hypertension) (Acute) Hyperbilirubinemia (Acute) Hypercalcemia (Acute) Night sweats (Acute) Supratherapeutic INR (Acute) Weight loss, unintentional (Acute) Hospital Course: (1) Supratherapeutic INR Code(s): R79.1 - ABNORMAL COAGULATION PROFILE (2) Cervical radiculopathy Code(s): M54.12 - RADICULOPATHY, CERVICAL REGION (3) Hypercalcemia Code(s): E83.52 - HYPERCALCEMIA (4) Hyperbilirubinemia Code(s): E80.6 - OTHER DISORDERS OF BILIRUBIN METABOLISM (5) Atrial fibrillation Code(s): I48.91 - UNSPECIFIED ATRIAL FIBRILLATION Qualifiers: Atrial fibrillation type: chronic Qualified Code(s): I48.2 - Chronic atrial fibrillation (6) HTN (hypertension) Code(s): I10 - ESSENTIAL (PRIMARY) HYPERTENSION (7) HLD (hyperlipidemia) Code(s): E78.5 - HYPERLIPIDEMIA, UNSPECIFIED (8) Night sweats Code(s): R61 - GENERALIZED HYPERHIDROSIS (9) Weight loss, unintentional Code(s): R63.4 - ABNORMAL WEIGHT LOSS Ms Brown is a 61 year old female who was sent in for shoulder and arm pain and was admitted for an elevated INR. She was given vitamin K and the INR corrected. She is ok to restart her previous dose of coumadin and encouraged to eat a healthy diet (suspect her coumadin was elevated secondary to decreased intake). She had a cervical spine CT which was negative. She was seen by neurology and recommended further evaluation as an outpatient. She had multiple non-specific complaints with a pertinent family history of cancer so multiple scans were performed to evaluate for malignancy. CT scans are negative. She was seen by PT and did well. Currently she is safe for discharge home.l 33 minutes spent in preparation of this discharge Condition: Good - Instructions Diet, Activity, Other Instructions: resume previous diet and activity Referrals: Prince Clayton MD [Staff Physician] - Vlad Smith MD [Staff Physician] - Holli Gonzalez MD [Primary Care Provider] - Disposition: HOME - Home Medications Comprehensive Discharge Medication List: Ambulatory Orders Carvedilol 3.125 mg PO BID 03/21/14 Simvastatin [Zocor -] 20 mg PO HS 03/21/14 Warfarin Sodium [Coumadin] 2.5 mg PO HS 03/21/14 Biotin 5 mg PO DAILY 10/28/14 Cholecalciferol (Vitamin D3) [Vitamin D3] 1,000 unit PO DAILY 10/28/14 Cyanocobalamin [Vitamin B12 -] 50 mcg PO DAILY 10/28/14 Spironolactone 50 mg PO DAILY 12/26/16 Cyclobenzaprine HCl [Flexeril 10 mg] 5 mg PO BID PRN #20 tablet 01/31/17 Gabapentin [Neurontin -] 300 mg PO BID #60 cap 01/31/17
--- NOTE | 2017-01-31 13:03 | PN ---
Progress Note (short form) - Note Progress Note: Neurology The patient is a 61 year old female, with a significant past medical history of Mitral stenosis (pacemaker in place), Atrial flutter, HTN, HLD, Rheumatic fever who presents to the emergency department with neck pain for the past month. The patient reports her neck pain radiates down her L arm with tingling sensation into her fingers. Patient denies any alleviating factors. She only tried Tylenol. She has CT C spine with facet hypertrophy. Ideally would be helpful to get EMG (cannot have MRI 2/2 PPM) however patient with INR elevated and therefore plan is for outpatient EMG. Cervical discomfort improved with gabapentin and flexiril combination. Active Medications Carvedilol (Coreg -) 3.125 mg PO BID [facility] Last Admin: 01/31/17 10:55 Dose: 3.125 mg Cholecalciferol (Vitamin D3 -) 1,000 unit PO DAILY [facility] Last Admin: 01/31/17 10:55 Dose: 1,000 unit Cyanocobalamin (Vitamin B12 -) 50 mcg PO DAILY [facility] Last Admin: 01/31/17 10:57 Dose: 50 mcg Cyclobenzaprine HCl (Flexeril -) 5 mg PO BID [facility] Last Admin: 01/31/17 10:56 Dose: 5 mg Diphenhydramine HCl (Benadryl -) 25 mg PO Q4H PRN PRN Reason: ITCHING /RASH Last Admin: 01/29/17 23:40 Dose: 25 mg Gabapentin (Neurontin -) 300 mg PO BID [facility] Last Admin: 01/31/17 10:57 Dose: 300 mg Ondansetron HCl (Zofran Injection) 4 mg IVPB Q6H PRN PRN Reason: NAUSEA Oxycodone HCl (Roxicodone -) 5 mg PO Q6H PRN Last Admin: 01/30/17 13:11 Dose: 5 mg Pantoprazole Sodium (Protonix -) 40 mg PO DAILY [facility] Last Admin: 01/31/17 10:57 Dose: 40 mg Spironolactone (Aldactone -) 50 mg PO DAILY [facility] Last Admin: 01/31/17 10:56 Dose: 50 mg *Physical Exam Vital Signs Period Temp Pulse Resp BP Sys/Tejeda Pulse Ox Last 24 Hr 97.4 F-98.6 F 69-100 18-20 97-143/58-88 98-100 GENERAL: The patient is in no acute distress. HEAD: Normal with no signs of trauma. EYES: PERRLA, EOMI, sclera anicteric, conjunctiva clear. ENT: Ears normal, nares patent, oropharynx clear without exudates. Moist mucous membranes. NECK: Normal range of motion, supple without lymphadenopathy, JVD, or masses. + Cervical midline tenderness. +Cervical and thoracic tenderness to palpation. LUNGS: Breath sounds equal, clear to auscultation bilaterally. No wheezes, and no crackles. HEART:Regular rate and rhythm, normal S1 and S2 without murmur, rub or gallop. ABDOMEN: Soft, nontender, normoactive bowel sounds. No guarding, no rebound. EXTREMITIES: Normal range of motion, no edema. No clubbing or cyanosis. No erythema, or tenderness. NEUROLOGICAL: Cranial nerves II through XII grossly intact. Normal speech. No focal neurological deficits. Lpn Medical Assistant strenght intact, decreased range of motion of cervical flex/ex MUSCULOSKELETAL: Back nontender to palpation, no CVA tenderness SKIN: Warm, Dry, normal turgor, no rashes or lesions noted. Laboratory Results 01/29/17 13:15 Sodium 134 L Potassium 4.3 Chloride 98 Carbon Dioxide 22 Anion Gap 14 BUN 37 H Creatinine 1.0 Creat Clearance w eGFR 56.37 Random Glucose 105 Calcium 10.2 H Total Bilirubin 2.0 H AST 44 H ALT 75 Alkaline Phosphatase 54 Total Protein 7.7 Albumin 4.4 01/29/17 13:15 RBC 5.51 H MCV 86.9 MCHC 34.8 RDW 14.5 MPV 8.0 Neutrophils % 68.3 Lymphocytes % 23.0 Monocytes % 7.5 Eosinophils % 0.6 Basophils % 0.6 Medical Decision Making 61 year old female, with a significant past medical history of Mitral stenosis ( pacemaker in place), Atrial flutter, HTN, HLD, Rheumatic fever who presents to the emergency department with neck pain for the past month. The patient reports her neck pain radiates down her L arm with tingling sensation into her fingers. Patient denies any alleviating factors. She only tried Tylenol. She has CT C spine with facet hypertrophy. Ideally would be helpful to get EMG (cannot have MRI 2/2 PPM) however patient with INR elevated and therefore may not be safe to do so at this time. Doing well on Erika 300mg twice daily and Cyclobenzaprine 5mg twice daily. Medical mgmt for INR as patient on Coumadin. Will have to defer EMG to outpatient. Neurologically improved.
--- NOTE | 2017-01-31 21:40 | CONS ---
DATE OF CONSULTATION: 01/31/2017 REFERRING PHYSICIAN: Alfonso Abarca MD; Artur Davis MD HISTORY OF PRESENT ILLNESS: The patient is a 61-year-old woman who presents with more than a month of pain from her neck radiating into the left upper extremity and shoulder. Patient recalls no inciting incident. It started out pain in the neck, radiating to the left arm with numbness of the 1st 4 digits of the left upper extremity. Patient has had no appetite and has been losing weight. On admission, she underwent a CT of the cervical spine as well as a CT of the head. The CT of the head showed partially-imaged paranasal sinuses without any opacification, mild involutional changes, and no change from prior CAT scan. CT of the cervical spine was also done. She has a pacemaker. There was noted left paracentral and lateral disk bulge impinging the left C7 nerve root as it enters the foramen. There is also some marked right facet hypertrophy at C5-6 and moderate left facet hypertrophy at C4-5. Patient continues to have problems turning her neck to the left side but also elevating her shoulder. She was getting some chest discomfort and underwent a chest CT, which showed no metastatic disease, essentially normal, without any definite pathology. Patient was started on gabapentin, is taking 300 mg twice a day without any sedation or side effect. CBC was normal. WBC 6.7, hemoglobin 15.0, platelet count 177. Chemistry showed slight elevation in BUN, with creatinine normal at 0.8. Her AST had been slightly elevated on admission at 44 but normalized to 27. She also had elevation in calcium, 10.2, which normalized to 8.9. She had some prerenal azotemia on admission with a BUN 37, creatinine 1.0. Patient continues to complain of pain. No numbness, tingling or weakness in the right upper extremity. REVIEW OF PAST MEDICAL AND SURGICAL HISTORY: Atrial fibrillation. She is maintained in Coumadin and had an elevated INR of over 9 on admission, currently subtherapeutic at 1.87. She underwent HIV testing, which was negative. Other past medical history: Hypertension, hyperlipidemia, and permanent pacemaker. SOCIAL HISTORY: Premorbidly independent. Non-tobacco user. Independently ambulatory and lives alone. REVIEW OF SYSTEMS: No lightheadedness, dizziness. No blurry vision, double vision. No nausea, vomiting, difficulty swallowing, difficulty chewing. No chest pain or shortness of breath. No abdominal discomfort. No bowel or bladder incontinence. No fever or chills. No numbness or tingling in the lower extremities or right upper extremity. Again, numbness in the 1st 4 digits of the left upper extremity. No noted weakness. No gait instability. EXAMINATION: General: Patient is seen sitting in a wheelchair, in no acute distress. HEENT: She is normocephalic and atraumatic. Musculoskeletal: She has good strength and range in the right upper extremity, mild weakness of the left upper extremity about the shoulder girdle due to pain. She has difficulty turning her neck to the left side because of pain in the shoulder and neck region. She has normal sensation to pinprick and fairly good thenar and hypothenar strength. She has good strength and range in the lower extremities. Skin without any rash or breakdown. Slightly positive impingement test in the left shoulder. RESULTS OF EMG NERVE CONDUCTION STUDIES: Please refer to report for details. OVERALL IMPRESSION: 1. Left C7 radiculopathy, probably due to underlying disk bulge. 2. No electrodiagnostic evidence of carpal tunnel syndrome, ulnar neuropathy, polyneuropathy, cervical radiculopathy. 3. Underlying facet arthropathy of cervical spine. 4. Cannot rule out left shoulder impingement syndrome. 5. Atrial fibrillation, on anticoagulation, status post supratherapeutic INR. PLAN, SUGGESTION 1. Increase gabapentin slowly to 300 mg up to 4 times a day and can even double this dose. 2. Outpatient physical therapy including cervical traction. 3. Continue metaxalone if needed. 4. Monitor INR. 5. Consider course of injection in the left shoulder. 6. Consider pain management, although I doubt she will be a candidate for epidural injection due to anticoagulation on Coumadin. 7. Consider home TENS unit electric stimulation unit. 8. Heat as needed. Will follow up as an outpatient. MEHDI MENDEZ M.D. [id number]
== END 2017-01-31 16:56 | disposition home or self-care (01) | DRG 463 ==
LOC: JER 12:38 → JERBED 16:05 → J8W 19:55
PROVIDERS: ADMIT Internal Medicine; ATTEND Internal Medicine
DX: R79.1 Abnormal coagulation profile (principal); I48.92 Unspecified atrial flutter; M54.12 Radiculopathy, cervical region; I10 Essential (primary) hypertension; E78.5 Hyperlipidemia, unspecified; I05.0 Rheumatic mitral stenosis; E80.6 Other disorders of bilirubin metabolism; I48.91 Unspecified atrial fibrillation; R63.4 Abnormal weight loss; R61 Generalized hyperhidrosis; E83.52 Hypercalcemia; Z88.0 Allergy status to penicillin; Z95.0 Presence of cardiac pacemaker; Z95.2 Presence of prosthetic heart valve; Z68.23 Body mass index [BMI] 23.0-23.9, adult; Z79.01 Long term (current) use of anticoagulants
CPT/HCPCS: 36415; 70450-TC; 71260-TC; 72125-TC; 74178-TC; 80048; 80053; 80307; 83735; 84100; 85025; 85610; 86850; 86900; 86901; 87389; 93005; 93010; 95860-TC; 97116-GP; 97161-GP; 99285-25; Q9967

== ENCOUNTER 2017-02-27 07:23 | Day surgery (SDC) | payer OTHER ==
[2017-02-26 10:28] VITALS: BMI 24.7
[2017-02-27] MEDS ORDERED: MIDAZOLAM HCL 2 MG/2 ML SINGLE DOSE VIAL ONE ×2 (09:05)
[2017-02-27] MEDS ORDERED: ROPIVACAINE HCL 0.5% 30ML VIAL ONE (09:06)
[2017-02-27] MEDS ORDERED: PROPOFOL 20 ML ONE (09:14)
--- NOTE | 2017-02-27 09:36 | HP ---
Satellite [facility] - Chief Complaint Chief Complaint: left shoulder pain - Past Medical History Allergies/Adverse Reactions: Allergies Allergy/AdvReac Type Severity Reaction Status Date / Time Penicillins Allergy Intermediate Verified 02/27/17 08:20 Cardiovascular: Yes: AFIB, HTN, Hyperlipdemia - Current Medications Current Medications: Home Medications Medication Instructions Recorded Carvedilol 3.125 mg PO BID 03/21/14 Simvastatin [Zocor -] 20 mg PO HS 03/21/14 Warfarin Sodium [Coumadin] 2.5 mg PO HS 03/21/14 Cholecalciferol (Vitamin D3) 1,000 unit PO DAILY 10/28/14 [Vitamin D3] Cyanocobalamin [Vitamin B12 -] 50 mcg PO DAILY 10/28/14 Cyclobenzaprine HCl [Flexeril 10 5 mg PO BID PRN #20 tablet 01/31/17 mg] Gabapentin [Neurontin -] 300 mg PO BID #60 cap 01/31/17 Enoxaparin Sodium [Lovenox] 60 mg SQ BID 02/26/17 Hydrocodone/Acetaminophen [[place] 1 - 2 each PO Q6H #40 tablet MDD 8 02/27/17 5-325 Tablet] Satellite Physical Exam - Physical Examination Vital Signs: Vital Signs Period Temp Pulse Resp BP Sys/Tejeda Pulse Ox Last 24 Hr 97.6 F 80 18 126/75 99 General Appearance: Well Nourished, Well Developed, Alert & Oriented x3 ENT: Clear Lung: Normal air movement Heart: Regular rate & rhythm Extremities: Other (lef tshoulder- + ttp, decr rom, + pop, + neer, nvi) Neurological: Intact, Alert, Oriented Satellite Impression/Plan - Impression/Plan Impression: left shoulder impingement Operative Procedure: left shoulder arthroscopy SAD Date to be Performed: 02/27/17
[2017-02-27] MEDS ORDERED: ceFAZolin SODIUM 1 GM VIAL IVPB ONE (10:44)
[2017-02-27] MEDS ORDERED: DEXAMETHASONE SOD PHOSPHATE 4 MG/1 ML VIAL ONE (10:48)
[2017-02-27] MEDS ORDERED: ceFAZolin SODIUM 1 GM VIAL ONE (10:48)
[2017-02-27] MEDS ORDERED: ONDANSETRON 4 MG/2 ML VIAL IVPUSH PRN (11:10)
[2017-02-27] MEDS ORDERED: oxyCODONE HCL 5 MG TABLET PO PRN (11:10)
[2017-02-27] MEDS ORDERED: PROMETHAZINE HCL 25 MG/1 ML VIAL IVPUSH PRN (11:10)
--- NOTE | 2017-02-27 11:12 | OP ---
Operative Note - Note: Operative Date: 02/27/17 ([facility]) Pre-Operative Diagnosis: left shoulder impingement Operation: left shoulder arthroscopy with SAD Post-Operative Diagnosis: Same as Pre-op Surgeon: Artur Davis Front Line Leader: Curtis Mackenzie Anesthesiologist/TECHNICAL SERVICES SPECIALIST: Cinthya Umana Anesthesia: General, Local Specimens Removed: shavings Estimated Blood Loss (mls): 10 Operative Report Dictated: Yes
[2017-02-27] MEDS ORDERED: LACTATED RINGERS SOLUTION 1,000 ML IV SCH (11:15)
--- NOTE | 2017-02-27 12:04 | OP ---
DATE OF OPERATION: 02/27/2017 PREOPERATIVE DIAGNOSIS: Left shoulder subacromial impingement. POSTOPERATIVE DIAGNOSIS: Left shoulder subacromial impingement. PROCEDURE: Left shoulder arthroscopy, subacromial decompression, distal clavicle excision. SURGEON: Nevin Mccarthy MD SHEARING SHED HAND: ALLEN Steele ANESTHESIA: Cinthya Umana CRNA, left interscalene block. LMA anesthesia. BLOOD LOSS: Minimal. BLOOD GIVEN: None. FLUID REPLACEMENT: 700 mL Plasmalyte. DRAINS: None. COMPLICATIONS: None. SPECIMEN: Arthroscopic shavings. 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 After understanding the potential risks, complications, alternatives, and benefits to surgical versus nonsurgical treatment, patient elected to undergo this procedure. The patient was brought to the operating room, peripheral IV placed, IV sedation given. Ancef 1 g IV was given. LM anesthesia was induced. She was placed into the beach chair position with ample padding throughout including the Styrofoam headholder. The left upper extremity was prepped and draped in a sterile fashion. The bony landmarks were marked out with a marking pen. A posterior portal was established. A diagnostic glenohumeral arthroscopy was performed. Inside the left shoulder joint, the patient was seen to have no osteoarthritis. The undersurface of the rotator cuff looked perfect. The patient had some fraying of the anterior labrum but no labral tear. The biceps tendon, biceps anchor looked good. Next our attention turned to the subacromial space. The patient had a lot of inflammatory bursitis. Under direct visualization, using a spinal needle, a lateral portal was established. A green cannula was introduced into the joint. ArthroCare wand was used to do an extensive debridement/subacromial soft tissue bursectomy and decompression. This revealed a moderate size bony spur on the undersurface of the acromion as well as the undersurface of the clavicle, and therefore a 5.5-mm oval bur was used to take down the acromial spur and then the distal clavicle. The bony aspect of the subacromial decompression was fine-tuned with the bur in reverse and then the straight shaver, also to remove debris. The area was copiously irrigated and washed out. The top of the rotator cuff was directly visualized. and there was no rotator cuff on this side either. Overall the decompression looked quite good. There was much more room. The arm was put through a full range of motion with no impingement. All excess saline was removed. The arthroscopy portals were closed with 3-0 nylon sutures. Aquacel dressing was applied. The patient was placed into a sling. Total operative time was about 30 minutes. There were no complications during the case. The patient tolerated the procedure quite well and was brought to the ambulatory recovery room in stable condition. NEVIN MCCARTHY M.D. [id number]
[2017-02-27 12:41] VITALS: TEMP 98
[2017-02-27 15:53] VITALS: BP 105/58; PULSE 60
--- NOTE | 2017-02-28 12:43 | PATH ---
Surgical Pathology Report Patient Name: SADIQ MAXWELL [facility]. Rec. #: [id number] /Age/Gender: 1955 (Age: 61) / F Account: [id number] Location: [facility] SURGICAL Taken: 02/27/2017 Received: 02/27/2017 Reported: 02/28/2017 Physicians: Artur Davis M.D. Specimen(s) Received SHAVINGS LEFT SHOULDER Clinical History Left shoulder tear Final Diagnosis SOFT TISSUE, LEFT SHOULDER, ARTHROSCOPIC SHAVINGS: SYNOVIUM AND FIBROCARTILAGE WITH MYXOHYALINE DEGENERATION. FRAGMENTS OF UNREMARKABLE BONE AND SKELETAL MUSCLE. Electronically Signed Nas Luna M.D. Gross Description Received in formalin, labeled "left shoulder shavings" is a 4.0 x 2.5 x 0.3 cm aggregate of diallo-yellow soft tissue fragments. A textiles sales representative portion is submitted in one cassette. /02/27/201702/27/2017
== END 2017-02-27 15:20 | disposition home or self-care (01) ==
LOC: JASU-SURG 07:23
PROVIDERS: ATTEND Orthopaedic Surgery
PROC: 0RNK4ZZ Release Left Shoulder Joint, Percutaneous Endoscopic Approach (ICD-10-PCS; 2017-02-27)
PROC: 0PBB4ZZ Excision of Left Clavicle, Percutaneous Endoscopic Approach (ICD-10-PCS; principal; 2017-02-27 09:30)
DX: M75.42 Impingement syndrome of left shoulder (principal)
CPT/HCPCS: 88304-TC; 94760

== ENCOUNTER 2018-01-09 23:24 | Emergency (ER) | payer BC, OTHER ==
[2018-01-09 23:31] VITALS: BP 130/88; PULSE 77; TEMP 98.3; BMI 24.7
--- NOTE | 2018-01-09 23:40 | PDOC ---
History of Present Illness - General Chief Complaint: Pain, Acute Stated Complaint: BACK PAIN Time Seen by Provider: 01/09/18 23:31 - History of Present Illness Initial Comments: This 62-year-old woman with a history of A. fib/flutter, pacemaker, mitral stenosis(s/p valvuloplasty) presents with 2 day history of left periscapular pain, worse with movement and deep breathing. Patient denies any history of trauma or overuse involving upper body. She has had a mild nonproductive cough since last night but no history of fever or upper respiratory symptoms. Patient has never had this particular pain before although she has long history of cervical radiculopathy/left shoulder impingement with accompanying muscle spasm. Since the patient is taking warfarin, she can only take acetaminophen for pain. Her last dose was about an hour prior to presentation. She has had muscle relaxants (Flexeril) the past but no longer has this prescription. Patient states that is followed her credit operations specialist () is functioning as her general doctor currently since her previous PMD has recently moved; she is awaiting first appointment with a new PMD. Past History - Past Medical History Allergies/Adverse Reactions: Allergies Allergy/AdvReac Type Severity Reaction Status Date / Time Penicillins Allergy Intermediate Verified 02/27/17 08:20 Home Medications: Ambulatory Orders Simvastatin [Zocor -] 20 mg PO HS 03/21/14 Warfarin Sodium [Coumadin] 2.5 mg PO HS 03/21/14 Acetaminophen 650 mg PO ONCE 01/09/18 Carvedilol 3.125 mg PO BID 01/09/18 Lisinopril 5 mg PO DAILY 01/09/18 Diazepam [Valium] 2 mg PO BID PRN #8 tablet MDD 2 tabs 01/10/18 Anemia: No Asthma: No Cancer: No Cardiac Disorders: Yes (pacemaker, RHEUMATIC FEVER, MITRAL STENOSIS, AFIB/ FLUTTER) CVA: No COPD: No CHF: Yes (MITRAL STENOSIS) Dementia: No Diabetes: No GI Disorders: No Disorders: No HTN: Yes Hypercholesterolemia: Yes Liver Disease: No Seizures: No Thyroid Disease: No - Surgical History Abdominal Surgery: No Appendectomy: No Cardiac Surgery: Yes (BALLOON VALVOPLASTY, AV WAYNE ABLATION) Cholecystectomy: No Lung Surgery: No Neurologic Surgery: No Orthopedic Surgery: No - Suicide/Smoking/Psychosocial Hx Smoking Status: No Smoking History: Never smoked Have you smoked in the past 12 months: No Number of Cigarettes Smoked Daily: 0 Cigars Per Day: 0 Hx Alcohol Use: Yes (WINE WITH DINNER) Drug/Substance Use Hx: No Substance Use Type: None Hx Substance Use Treatment: No Review of Systems - Review of Systems Able to Perform ROS?: Yes Comments:: 12 point review of systems is negative except for what is noted in the history of present illness *Physical Exam - Vital Signs Last Vital Signs Temp Pulse Resp BP Pulse Ox 98.3 F 77 18 130/88 100 01/09/18 23:29 01/09/18 23:29 01/09/18 23:29 01/09/18 23:29 01/09/18 23:29 - Physical Exam Comments: GENERAL: Adult female, in marked distress secondary to movement related pain of the left upper back HEAD : Normal with no signs of trauma. EYES: PERRLA, EOMI, sclera anicteric, conjunctiva clear. ENT: Ears normal, nares patent, oropharynx clear without exudates. Moist mucous membranes. NECK: Normal range of motion, supple without lymphadenopathy, JVD, or masses. LUNGS: Breath sounds equal, clear to auscultation bilaterally. No wheezes, and no crackles. CHEST WALL: Moderate tenderness in the area medial to left scapula; pain reproduced with movement of left shoulder girdle No rib tenderness or step-off; no crepitus noted; no rubs; no thoracic vertebral body tenderness HEART: No murmur, rub or gallop. ABDOMEN:.normal bowel sounds No guarding,tenderness or rebound.No masses No distention. EXTREMITIES: Normal range of motion, no edema. No clubbing or cyanosis. No erythema, or tenderness. NEUROLOGICAL: Cranial nerves II through XII grossly intact. Normal speech. No focal neurological deficits. SKIN: Warm, Dry, normal turgor, no rashes or lesions noted. Medical Decision Making - Medical Decision Making This 62-year-old woman with a significant cardiac history (A. fib/flutter/ valvular disease/pacemaker) presents with a few day history of left periscapular pain worse with movement. No known history of trauma or overuse. Physical exam notable for respiratory rate of 18/minute and oxygen saturation of 100% on room air. Chest wall exam notable for left periscapular muscle tenderness (rhomboid group). Pain was very reproducible with movement of her left shoulder girdle. Lungs were clear. Valium 5 mg PO administered. Chest x-ray, PA and lateral performed and interpreted by me: Cardiomegaly (as seen previously) present but no new effusion/infiltrate/masses are evident. Patient feels markedly better after diazepam. She is able to move without significant pain, moving left upper back/shoulder easily in contrast to her presentation when any change in position of her upper body would induce pain. Patient states that she is breathing easily now; she has no sensation of shortness of breath and is not coughing. Clinical presentation most consistent with isolated muscle spasm in the left- sided thoracic back/periscapular region. She had excellent therapeutic response with diazepam. Patient will be given a small (#8) prescription for diazepam 2 mg to be taken up to twice a day as needed for muscle spasm. The patient asked for a tablet to be taken in the morning prior to the time that her pharmacy opens. Patient given 1 tab of diazepam 2 mg to be used in the morning as needed. She is been advised to drink plenty of water to avoid being dehydrated which predisposes to muscle spasms. Patient was also advised to use warm compresses in the area around the area of the left scapula as needed for recurrent muscle spasms. She should follow-up with Dr. Clayton within the next few days (call office tomorrow). *DC/Admit/Observation/Transfer Diagnosis at time of Disposition: Spasm of thoracic back muscle - Discharge Dispostion Disposition: HOME Condition at time of disposition: Stable - Prescriptions Prescriptions: Diazepam [Valium] 2 mg PO BID PRN #8 tablet MDD 2 tabs PRN Reason: Muscle Spasms - Referrals Referrals: Prince Clayton MD [Staff Physician] - - Patient Instructions Printed Discharge Instructions: DI for Thoracic Back Pain Additional Instructions: Warm compresses/heating pad on low to area around your left shoulder blade as needed Valium 2 mg up to twice a day as needed for muscle spasms Tylenol as needed for pain Return to ER immediately if you have shortness of breath/severe cough/chest pain Call Dr. Chavis's office in the morning to arrange follow-up within the next 3-4 days - Post Discharge Activity
[2018-01-09] MEDS ORDERED: diazePAM 5 MG TABLET PO ONE (23:44)
[2018-01-09] MEDS ORDERED: diazePAM 5 MG TABLET ONE (23:46)
[2018-01-10] MEDS ORDERED: diazePAM 2 MG TABLET ONE (00:52)
== END 2018-01-10 01:02 | disposition home or self-care (01) ==
LOC: FER 23:24
DX: M62.830 Muscle spasm of back (principal); I48.91 Unspecified atrial fibrillation; Z95.0 Presence of cardiac pacemaker; I10 Essential (primary) hypertension; E78.00 Pure hypercholesterolemia, unspecified; I00 Rheumatic fever without heart involvement
CPT/HCPCS: 71046-TC-FY; 99282-25

== ENCOUNTER 2018-12-08 13:57 | Emergency (ER) | payer BC ==
--- NOTE | 2018-12-08 14:05 | PDOC ---
Rapid Medical Evaluation Chief Complaint: Pain Time Seen by Provider: 12/08/18 14:04 Medical Evaluation: Allergies Allergy/AdvReac Type Severity Reaction Status Date / Time Penicillins Allergy Intermediate Verified 02/27/17 08:20 12/08/18 14:04 I have performed a brief in-person evaluation of this patient. The patient presents with a chief complaint of pain to left wrist. Patient s/p fall onto left hand. deneis hitting head Pertinent physical exam findings NAD even and unlabored breathing pain with flexing and extending of left wrist I have ordered the following xray and analgesia The patient will proceed to the ED for further evaluation.
[2018-12-08] MEDS ORDERED: KETOROLAC TROMETHAMINE 30 MG/1 ML VIAL IM ONE (14:06)
[2018-12-08 14:07] VITALS: BP 100/59; PULSE 80; TEMP 97.8; BMI 22.4
--- NOTE | 2018-12-08 14:42 | PDOC ---
History of Present Illness - History of Present Illness Initial Comments: This patient is a 63 year old female with PMHx of A. fib/flutter, pacemaker, mitral stenosis(s/p valvuloplasty), HTN, HLD, who presents to [facility] for LUE swelling and pain. 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 She states that she tripped over the vacuum cord and fell onto her left arm. She is now complaining of pain and swelling in her left wrist. Denies hitting her head or loc. Allergies: Penicillins PCP: Charlene Linton <Maricruz Finley - Last Filed: 12/08/18 15:03> - General History Source: Patient Exam Limitations: No Limitations <Natasha Siegel - Last Filed: 12/08/18 15:31> - General Chief Complaint: Pain Stated Complaint: FALL / SWOLLEN HAND Time Seen by Provider: 12/08/18 14:04 Past History <Maricruz Finley - Last Filed: 12/08/18 15:03> - Past Medical History Anemia: No Asthma: No Cancer: No Cardiac Disorders: Yes (pacemaker, RHEUMATIC FEVER, MITRAL STENOSIS, AFIB/ FLUTTER) CVA: No COPD: No CHF: Yes (MITRAL STENOSIS) Dementia: No Diabetes: No GI Disorders: No Disorders: No HTN: Yes Hypercholesterolemia: Yes Liver Disease: No Seizures: No Thyroid Disease: No - Surgical History Abdominal Surgery: No Appendectomy: No Cardiac Surgery: Yes (BALLOON VALVOPLASTY, AV WAYNE ABLATION) Cholecystectomy: No Lung Surgery: No Neurologic Surgery: No Orthopedic Surgery: No - Suicide/Smoking/Psychosocial Hx Smoking Status: No Smoking History: Never smoked Have you smoked in the past 12 months: No Number of Cigarettes Smoked Daily: 0 Cigars Per Day: 0 Information on smoking cessation initiated: No Hx Alcohol Use: No Drug/Substance Use Hx: No Substance Use Type: None Hx Substance Use Treatment: No <Natasha Siegel - Last Filed: 12/08/18 15:31> - Past Medical History Allergies/Adverse Reactions: Allergies Allergy/AdvReac Type Severity Reaction Status Date / Time Penicillins Allergy Intermediate Verified 02/27/17 08:20 Home Medications: Ambulatory Orders Simvastatin [Zocor -] 20 mg PO HS 03/21/14 Warfarin Sodium [Coumadin] 2.5 mg PO HS 03/21/14 Lisinopril 5 mg PO DAILY 01/09/18 Metoprolol Succinate 25 mg PO ASDIR 12/08/18 Oxycodone HCl/Acetaminophen [Percocet 5-325 mg Tablet] 1 tab PO Q6H #20 tablet MDD 4 12/08/18 Polyethylene Glycol 3350 [Miralax (For Bowel Prep) -] 17 gm PO DAILY #1 bottle 12/08/18 Review of Systems - Review of Systems Comments:: GENERAL/CONSTITUTIONAL: No fever or chills. No weakness. HEAD, EYES, EARS, NOSE AND THROAT: No change in vision. No ear pain or discharge. No sore throat. CARDIOVASCULAR: No chest pain or shortness of breath. RESPIRATORY: No cough, wheezing, or hemoptysis. GASTROINTESTINAL: No nausea, vomiting, diarrhea or constipation. GENITOURINARY: No dysuria, frequency, or change in urination. MUSCULOSKELETAL: +left wrist pain and swelling. No neck or back pain. SKIN: No rash NEUROLOGIC: No headache, vertigo, loss of consciousness, or change in strength/ sensation. ENDOCRINE: No increased thirst. No abnormal weight change. HEMATOLOGIC/LYMPHATIC: No anemia, easy bleeding, or history of blood clots. ALLERGIC/IMMUNOLOGIC: No hives or skin allergy. <Maricruz Finley - Last Filed: 12/08/18 15:03> *Physical Exam - Vital Signs Last Vital Signs Temp Pulse Resp BP Pulse Ox 97.8 F 80 20 100/59 L 99 12/08/18 14:03 12/08/18 14:03 12/08/18 14:03 12/08/18 14:03 12/08/18 14:03 - Physical Exam Comments: GENERAL: Awake, alert, and fully oriented, in no acute distress HEAD: No signs of trauma EYES: PERRLA, EOMI, sclera anicteric, conjunctiva clear EXTREMITIES: Swelling and tenderness to palpation over the distal radius. Unable to supinate or pronate 2/2 pain. FROM of phalanges. Radial pulses intact. No clubbing or cyanosis. No cords, erythema. NEUROLOGICAL: Cranial nerves II through XII grossly intact. Normal speech, normal gait SKIN: Warm, Dry, normal turgor, no rashes or lesions noted. <Maricruz Finley - Last Filed: 12/08/18 15:03> - Vital Signs Last Vital Signs Temp Pulse Resp BP Pulse Ox 97.8 F 80 20 100/59 L 99 12/08/18 14:03 12/08/18 14:03 12/08/18 14:03 12/08/18 14:03 12/08/18 14:03 <Natasha Siegel - Last Filed: 12/08/18 15:31> Moderate Sedation - Procedure Monitoring Vital Signs: Procedure Monitoring Vital Signs Temperature 97.8 F 12/08/18 14:03 Pulse Rate 80 12/08/18 14:03 Respiratory Rate 20 12/08/18 14:03 Blood Pressure 100/59 L 12/08/18 14:03 O2 Sat by Pulse Oximetry (%) 99 12/08/18 14:03 <Maricruz Finley - Last Filed: 12/08/18 15:03> - Procedure Monitoring Vital Signs: Procedure Monitoring Vital Signs Temperature 97.8 F 12/08/18 14:03 Pulse Rate 80 12/08/18 14:03 Respiratory Rate 20 12/08/18 14:03 Blood Pressure 100/59 L 12/08/18 14:03 O2 Sat by Pulse Oximetry (%) 99 12/08/18 14:03 <Natasha Siegel - Last Filed: 12/08/18 15:31> Procedures - Splinting Splint Location: Left: Wrist Pre-Proc Neuro Vasc Exam: normal Hand-Made Type: orthoglass Splint Type: Yes: Sugar Tong Post-Proc Neuro Vasc Exam: unchanged from pre-exam Geronimo Bandage: 4" Sling: Yes Complications: No Post splint xray: No Good repositioning: Yes <Natasha Siegel - Last Filed: 12/08/18 15:31> ED Treatment Course - Medications Given in the ED: ED Medications Discontinued Medications Generic Name Dose Route Start Last Admin Trade Name Freq PRN Reason Stop Dose Admin Ketorolac Tromethamine 30 mg 12/08/18 14:06 12/08/18 14:35 Toradol Injection - IM 12/08/18 14:07 Not Given ONCE ONE <Maricruz Finley - Last Filed: 12/08/18 15:03> Medical Decision Making - Medical Decision Making 12/08/18 14:44 A portion of this note was documented by scribe services under my direction. I have reviewed the details of the note, within reason, and agree with the documentation with the following case summary and management plan written by me. A/P: Wrist pain X-ray of L hand and wrist obtained from E Positive impaction fracture as read by radiology Fracture is non-displaced at this time Will splint, give pain manegment and send to ortho DC home I discussed the physical exam findings, ancillary test results and final diagnoses with the patient. I answered all of the patient's questions. The patient was satisfied with the care received and felt comfortable with the discharge plan and treatment plan. The Patient agrees to follow up with the primary care physician/specialist within 24-72 hours. Return precautions were given. <Natasha Siegel - Last Filed: 12/08/18 15:31> *DC/Admit/Observation/Transfer - Attestations Scribe Attestion: 12/08/18 14:49 Documentation prepared by Maricruz Finley, acting as medical transcriber for ALLEN Connell <Maricruz Finley - Last Filed: 12/08/18 15:03> - Discharge Dispostion Decision to Admit order: No <Natasha Siegel - Last Filed: 12/08/18 15:31> Diagnosis at time of Disposition: Distal radius fracture Qualifiers: Encounter type: initial encounter Fracture type: closed Fracture morphology: other fracture Laterality: left Qualified Code(s): S52.592A - Other fractures of lower end of left radius, initial encounter for closed fracture - Discharge Dispostion Disposition: HOME Condition at time of disposition: Stable - Prescriptions Prescriptions: Oxycodone HCl/Acetaminophen [Percocet 5-325 mg Tablet] 1 tab PO Q6H #20 tablet MDD 4 Polyethylene Glycol 3350 [Miralax (For Bowel Prep) -] 17 gm PO DAILY #1 bottle - Referrals Referrals: Artur Davis MD [Staff Physician] - - Patient Instructions Printed Discharge Instructions: DI for Distal Radius Fracture Additional Instructions: You broke your wrist (distal radius fracture) Please wear the splint until you can see orthopedics. Do not take the splint off. Do not get it wet. You may take Percocet, one pill every 6 hours as needed for pain. Do not drink or drive after taking this medication as it may make you sleepy Ice the wrist over the splint for 20 minute intervals Wear the sling during the day to reduce swelling Follow up with orthopedics in the next 1-2 days. A referral has been provided Return to the ED for worsening pain, numbness and tingling to the extremities, increased swelling, or if you have any changes in your symptoms - Post Discharge Activity Forms/Work/School Notes: Back to Work
== END 2018-12-08 15:41 | disposition home or self-care (01) ==
LOC: JERFT 13:57
PROC: 3E0233Z Introduction of Anti-inflammatory into Muscle, Percutaneous Approach (ICD-10-PCS; principal; 2018-12-08)
PROC: 2W3DX1Z Immobilization of Left Lower Arm using Splint (ICD-10-PCS; 2018-12-08)
DX: S52.592A Other fractures of lower end of left radius, initial encounter for closed fracture (principal); W18.09XA Striking against other object with subsequent fall, initial encounter; Y93.E3 Activity, vacuuming; Y92.098 Other place in other non-institutional residence as the place of occurrence of the external cause; Y99.0 Civilian activity done for income or pay
CPT/HCPCS: 73110-TC-LT-FY; 73130-TC-LT-FY; 99282-25

== ENCOUNTER 2020-12-06 01:32 | Emergency (ER) | payer BC, OTHER ==
[2020-12-06 01:51] VITALS: BP 113/71; PULSE 66; TEMP 99; BMI 25.6
[2020-12-06 02:58] LABS: BASO % 0.8 % (0-2.0); EOS % 1.1 % (0-4.5); HEMATOCRIT 38.3 % (32.4-45.2); HEMOGLOBIN 13.4 GM/dL (10.7-15.3); LYMPH % 10.6 % (8-40); MCH 30.4 pg (25.7-33.7); MEAN CELL VOLUME 86.8 fl (80-96); MEAN PLT VOLUME 8.7 fl (7.5-11.1); MONO % 9.1 % (3.8-10.2); NEUT % 78.4 % (42.8-82.8); PLATELET COUNT 228 K/MM3 (134-434); RBC 4.41 M/mm3 (3.60-5.2); RDW 13.2 % (11.6-15.6); WHITE BLOOD COUNT 13.5 K/mm3 (4.0-10.0)
[2020-12-06 03:10] LABS: INR 3.83 (0.83-1.09); PROTHROMBIN TIME (PATIENT) 44.6 SEC (9.7-13.0)
[2020-12-06 03:45] LABS: POTASSIUM 4.1 mmol/L (3.5-5.1)
[2020-12-06 03:47] LABS: ALBUMIN 3.9 g/dl (3.4-5.0); BLOOD UREA NITROGEN 23.6 mg/dL (7-18)
[2020-12-06 03:50] LABS: CREATININE 0.9 mg/dL (0.55-1.3)
[2020-12-06 03:52] LABS: BILIRUBIN,TOTAL 1.3 mg/dL (0.2-1); TOT PROT 7.1 g/dl (6.4-8.2)
[2020-12-06 05:21] LABS: ANISOCYTOSIS 2+; MACROCYTOSIS 0; PLATELET ESTIMATE NORMAL
[2020-12-06] MEDS ORDERED: ACETAMINOPHEN 325 MG TABLET (FP) PO ONE (05:31)
[2020-12-06] MEDS ORDERED: ACETAMINOPHEN 325 MG TABLET (FP) ONE (05:39)
[2020-12-06 05:47] LABS: EPI CELLS 10 /uL (0-25.1); HYALINE CASTS 1 /uL (0-3.1); URINE APPEARANCE CLEAR; URINE BACTERIA 98 /uL (0-1359); URINE BILIRUBIN NEGATIVE (NEGATIVE); URINE COLOR YELLOW; URINE GLUCOSE (UA) NEGATIVE (NEGATIVE); URINE KETONE NEGATIVE (NEGATIVE); URINE LEUK ESTERASE NEGATIVE (NEGATIVE); URINE NITRITE NEGATIVE (NEGATIVE); URINE PROTEIN NEGATIVE (NEGATIVE); URINE RBC 23 /uL (0-23.9); URINE WBC 8 /uL (0-25.8)
== END 2020-12-06 05:58 | disposition home or self-care (01) ==
LOC: FER 01:32
DX: K57.92 Diverticulitis of intestine, part unspecified, without perforation or abscess without bleeding (principal)
CPT/HCPCS: 36415; 74177-TC; 80053; 81003; 85025; 85610; 99285-25; Q9967

== ENCOUNTER 2021-07-07 16:07 | Emergency (ER) | payer OTHER ==
[2021-07-07 16:29] VITALS: BP 133/74; PULSE 76; TEMP 98.3; BMI 26.5
== END 2021-07-07 17:52 | disposition home or self-care (01) ==
LOC: FER 16:07
DX: R22.41 Localized swelling, mass and lump, right lower limb (principal)
CPT/HCPCS: 73610-TC-RT-FY; 73630-TC-RT-FY; 99284-25

== ENCOUNTER 2022-03-23 06:31 | Emergency (ER) | payer OTHER ==
[2022-03-23 06:43] VITALS: TEMP 97.7; BMI 26.3
[2022-03-23] MEDS ORDERED: OXYMETAZOLINE 0.05% NASAL SOLUTION 15 ML BOTTLE NS ONE (07:22)
[2022-03-23 09:31] VITALS: BP 107/56; PULSE 62
== END 2022-03-23 09:29 | disposition home or self-care (01) ==
LOC: JER 06:31
PROC: 093K7ZZ Control Bleeding in Nasal Mucosa and Soft Tissue, Via Natural or Artificial Opening (ICD-10-PCS; principal; 2022-03-23)
DX: R04.0 Epistaxis (principal)
CPT/HCPCS: 30901-25; 99283-25

== ENCOUNTER 2023-09-07 04:55 | Emergency (ER) | payer OTHER ==
[2023-09-07 05:00] VITALS: BP 149/75; PULSE 66; RESP 16; TEMP 97.6; BMI 26.3
[2023-09-07] MEDS ORDERED: ACETAMINOPHEN 500 MG TABLET (FP) PO ONE (05:20)
[2023-09-07] MEDS ORDERED: ACETAMINOPHEN 500 MG TABLET (FP) ONE (05:21)
== END 2023-09-07 05:26 | disposition home or self-care (01) ==
LOC: FER 04:55
DX: M25.531 Pain in right wrist (principal); M67.833 Other specified disorders of tendon, right wrist
CPT/HCPCS: 99283-25

== ENCOUNTER 2023-12-03 21:39 | Emergency (ER) | payer OTHER ==
[2023-12-03 21:51] VITALS: BP 151/73; PULSE 83; RESP 16; TEMP 99; BMI 24.7
[2023-12-03] MEDS ORDERED: CIPROFLOXACIN 250 MG TABLET (RESTRICTED TO ID) PO ONE (22:06)
[2023-12-03] MEDS: CIPROFLOXACIN 500 MG TABLET (RESTRICTED TO ID) PO ONE (22:17)
== END 2023-12-03 22:28 | disposition home or self-care (01) ==
LOC: FER 21:39
DX: R35.0 Frequency of micturition (principal); R39.15 Urgency of urination; R31.0 Gross hematuria; R10.30 Lower abdominal pain, unspecified
CPT/HCPCS: 81003; 81015; 87086; 87186; 99283-25

== ENCOUNTER 2024-08-07 14:55 | Emergency (ER) | payer OTHER ==
[2024-08-07 15:10] VITALS: BP 127/81; PULSE 70; RESP 18; TEMP 98.1; BMI 25.2
[2024-08-07] MEDS: CLINDAMYCIN HCL 300 MG CAPSULE PO ONE (16:22)
[2024-08-07] MEDS ORDERED: CLINDAMYCIN HCL 150 MG CAPSULE (FP) ONE (16:22)
== END 2024-08-07 16:26 | disposition home or self-care (01) ==
LOC: FER 14:55
DX: K04.7 Periapical abscess without sinus (principal)
CPT/HCPCS: 99283-25

== ENCOUNTER 2024-08-17 10:05 | Emergency (ER) | payer OTHER ==
[2024-08-17] MEDS ORDERED: LIDOCAINE 5% TOPICAL PATCH ONE (11:03)
[2024-08-17] MEDS: LIDOCAINE 5% TOPICAL PATCH TP ONE (11:05)
[2024-08-17 11:06] VITALS: BP 132/71; PULSE 62; RESP 20; TEMP 97.3; BMI 25.6
[2024-08-17] MEDS ORDERED: LIDOCAINE PATCH REMOVAL MC ONE (22:00)
== END 2024-08-17 12:12 | disposition home or self-care (01) ==
LOC: FER 10:05
DX: M25.511 Pain in right shoulder (principal); W18.30XA Fall on same level, unspecified, initial encounter
CPT/HCPCS: 73030-TC-RT-FY; 99283-25

== ENCOUNTER 2024-11-30 13:20 | Emergency (ER) | payer OTHER ==
[2024-11-30 13:44] VITALS: BMI 25.2
[2024-11-30] MEDS ORDERED: ATROPINE SULFATE 1 MG/10 ML DISP.SYRIN ONE (14:16)
[2024-11-30] MEDS: ATROPINE SULFATE 1 MG/10 ML DISP.SYRIN IVPUSH ONE (14:21)
[2024-11-30 14:50] LABS: HEMATOCRIT 36.8 % (32.4-45.2); HEMOGLOBIN 12.5 G/dL (10.7-15.3); MCH 29.7 pg (25.7-33.7); MEAN CELL VOLUME 87.1 fl (80-96); MEAN PLT VOLUME 9.4 fl (7.5-11.1); PLATELET COUNT 207.6 10^3/uL (134-434); RBC 4.22 10^6/uL (3.60-5.2); RDW 14.5 % (11.6-15.6); WHITE BLOOD COUNT 8.3 10^3/uL (4.0-10.8)
[2024-11-30] MEDS: DOPAMINE 400 MG/D5W - 400,000 MCG/250 ML INFUS.BAG IVPB SCH (14:50)
[2024-11-30 14:51] LABS: INR 2.33 (0.83-1.09); PROTHROMBIN TIME (PATIENT) 25.9 SEC (9.7-13.0)
[2024-11-30 14:54] LABS: ACTIVATED PTT 39.2 SECONDS (25.2-36.5)
[2024-11-30 15:05] LABS: ALBUMIN 4.1 g/dl (3.4-5.0); BILIRUBIN,TOTAL 1.1 mg/dl (0.2-1); CALCIUM 9.4 mg/dl (8.5-10.1); CREATININE 0.8 mg/dl (0.6-1.3); MAGNESIUM 1.8 mg/dL (1.8-2.4); POTASSIUM 4.2 mmol/L (3.5-5.1); TOT PROT 6.4 g/dl (6.4-8.2)
[2024-11-30 15:21] VITALS: BP 102/48; PULSE 33; RESP 20; TEMP 98
[2024-11-30 17:13] LABS: VENOUS BASE EXCESS -0.2 mmol/L (-2-2); VENOUS O2 SATURATION 25.3 % (70-80); VENOUS PCO2 40.8 mmHg (38-52); VENOUS PH 7.398 (7.310-7.410)
[2024-11-30 17:21] LABS: PLATELET ESTIMATE ADEQUATE
== END 2024-11-30 16:25 | disposition short-term general hospital (02) ==
LOC: FER 13:20
PROC: 3E033GC Introduction of Other Therapeutic Substance into Peripheral Vein, Percutaneous Approach (ICD-10-PCS; principal; 2024-11-30)
DX: I44.2 Atrioventricular block, complete (principal); R53.83 Other fatigue; R42 Dizziness and giddiness; R53.1 Weakness; R00.1 Bradycardia, unspecified; Z20.822 Contact with and (suspected) exposure to COVID-19
CPT/HCPCS: 0241U-QW; 36415; 71045-TC-FY; 80053; 82803; 83605; 83735; 84439; 84443; 84484; 85027; 85610; 85730; 86850; 86900; 86901; 93005; 96374; 99285-25

== ENCOUNTER 2024-12-06 23:10 | Emergency (ER) | payer OTHER ==
[2024-12-06 23:30] VITALS: BP 128/71; PULSE 78; RESP 18; TEMP 98.6; BMI 26.0
[2024-12-06] MEDS ORDERED: METHOCARBAMOL 500 MG TABLET ONE (23:55)
[2024-12-07] MEDS: METHOCARBAMOL 500 MG TABLET PO ONE (00:05)
[2024-12-07 00:54] LABS: BASO % 0.2 % (0-2.0); EOS % 1.6 % (0-4.5); HEMATOCRIT 33.9 % (32.4-45.2); HEMOGLOBIN 11.6 GM/dL (10.7-15.3); MCH 29.2 pg (25.7-33.7); MCHC 34.4 g/dl (32.0-36.0); MEAN CELL VOLUME 84.8 fl (80-96); MEAN PLT VOLUME 8.5 fl (7.5-11.1); MONO % 12.1 % (3.8-10.2); NEUT % 75.1 % (42.8-82.8); PLATELET COUNT 229 10^3/uL (134-434); RBC 3.99 M/mm3 (3.60-5.2); RDW 14.4 % (11.6-15.6); WHITE BLOOD COUNT 9.4 K/mm3 (4.0-10.0)
[2024-12-07 01:16] LABS: CALCIUM 8.6 mg/dL (8.5-10.1)
[2024-12-07 01:17] LABS: ALBUMIN 3.3 g/dl (3.4-5.0); BLOOD UREA NITROGEN 16.5 mg/dL (7-18)
[2024-12-07 01:20] LABS: CREATININE 0.6 mg/dL (0.55-1.3)
[2024-12-07 01:22] LABS: BILIRUBIN,TOTAL 1.1 mg/dL (0.2-1)
[2024-12-07 01:25] LABS: N-TERMINAL BNP 391.3 pg/ml (5-125)
== END 2024-12-07 01:43 | disposition home or self-care (01) ==
LOC: FER 23:10
DX: M54.9 Dorsalgia, unspecified (principal); F41.9 Anxiety disorder, unspecified
CPT/HCPCS: 36415; 71045-TC-FY; 80053; 83880; 84484; 85025; 99285-25

== ENCOUNTER 2025-05-22 14:45 | Emergency (ER) | payer OTHER ==
[2025-05-22 15:03] VITALS: BP 130/81; PULSE 75; RESP 18; TEMP 97.9; BMI 25.0
== END 2025-05-22 17:20 | disposition home or self-care (01) ==
LOC: FER 14:45
DX: S93.402A Sprain of unspecified ligament of left ankle, initial encounter (principal); X58.XXXA Exposure to other specified factors, initial encounter
CPT/HCPCS: 73610-TC-LT-FY; 73630-TC-LT; 99283-25